=== PATIENT | female | born 2000 | race Caucasian/White ===

== ENCOUNTER 2020-03-07 16:12 | Emergency (ER) | payer SELFPAY ==
[2020-03-07 16:27] VITALS: BP 160/110; PULSE 104; RESP 18; TEMP 36.6; O2SAT 98; BMI 37.2
[2020-03-07 16:33] VITALS: BP 126/80; RESP 18; O2SAT 98
[2020-03-07 16:44] VITALS: RESP 18; O2SAT 97
[2020-03-07 16:50] LABS: Add Urine Microscopic? NO
[2020-03-07 16:58] LABS: Bilirubin Urine Neg (NEGATIVE); Blood Urine Neg (Negative); Glucose Urine UA Norm (Normal); Ketones Urine Negative (Negative); Leukocyte Esterase Urine Negative (Negative); Nitrate Urine Negative (Negative); Protein Urine Neg (Negative); Urine Appearance Clear (CLEAR); Urine Color Yellow (Yellow); Urobilinogen Urine Norm (Negative); pH Urine 5 (5-7)
[2020-03-07 17:00] LABS: Basophils % 0.2 %; Eosinophils # 0.1 10^3/uL (0.0-0.8); Eosinophils % 1.6 %; Hematocrit 40.9 % (37.0-47.0); Hemoglobin 13.2 g/dL (11.5-15.3); Lymphocytes # 1.8 10^3/uL (1.5-6.5); Lymphocytes % 22.5 %; Mean Corpuscular HGB Conc 32.3 g/dL (30.0-36.0); Mean Corpuscular Hemoglobin 27.8 pg (28.0-34.0); Mean Corpuscular Volume 86.1 fL (81-99); Monocytes # 0.4 10^3/uL (0.2-0.9); Monocytes % 5.2 %; Neutrophils # 5.6 10^3/uL (1.8-8.0); Neutrophils % 70.3 %; Nucleated Red Blood Cells % 0 %; Platelet Count 335 10^3/cmm (130-400); Red Blood Count 4.75 10^6/uL (4.1-5.3); Red Cell Distribution Width 13.5 % (12.1-15.1)
--- NOTE | 2020-03-07 17:02 | ED_ITS ---
HPI - Back Pain/Injury General: Chief Complaint: Back Pain/Injury Stated Complaint: back pain Time Seen by Provider: 03/07/20 16:27 History of Present Illness: HPI Narrative: 19-year-old female presents with complaint of mid to low back pain for the last 2 weeks is been crampy in nature to prevent her from working she denies any dysuria urgency or frequency no trauma that she can recall. She is not had any cough or shortness of breath she is tried various [id number] medications particularly Tylenol. She is also tried marijuana which she said did not help. She not previously had significant back problems no previous surgeries. She denies any urinary retention or fecal incontinence. MD elicited complaint: back pain Onset (ago): week(s) (2) Timing: constant Severity: severe Similar Symptoms Previously: No Quality: aching Location: lumbar spine and thoracic spine Radiation: none Relieving factors: supine Associated symptoms: Reports no associated symptoms; Deny abdominal pain, chills, dysuria, fatigue, fever(s), nausea, urinary urgency or vomiting Treatments prior to arrival: acetaminophen and prescription analgesics Review of Systems Const: Denies: fever(s), chills, body aches, change in appetite, fatigue or malaise ENMT: Denies: throat pain, ear or mastoid pain, nasal discharge or nasal congestion Card: Denies: chest pain, edema, dyspnea on exertion or orthopnea Resp: Denies: dyspnea, productive cough or non-productive cough GI: Denies: abdominal pain, nausea, vomiting, hematemesis, coffee ground emesis, diarrhea, constipation, bloating, hematochezia or melena : Denies: flank pain, difficulty voiding, dysuria, urinary frequency or urinary urgency Skin/Breast: Denies: rash or pruritus PFS ED PFSH: Medical History Asthma Social History Smoking and tobacco status: current every day smoker Female Reproductive History: Date of last menstrual period: 02/16/20 Physical Exam Const: COMMON NORMALS: no acute distress GENERAL APPEARANCE: cooperative and comfortable ORIENTATION/CONSCIOUSNESS: Yes awake, Yes oriented to person, Yes oriented to place and Yes oriented to time HENMT: COMMON NORMALS: normocephalic, atraumatic, hearing grossly normal bilaterally, external ears normal, EAC's normal, TM's normal bilaterally, Normal nasal mucous membranes and turbinates present, moist oral mucous membranes and oropharynx normal HEAD & SCALP: normocephalic and atraumatic NOSE: Normal nasal mucous membranes and turbinates present EXTERNAL EAR: Yes external ears normal EXTERNAL AUDITORY CANAL: EAC's normal TYMPANIC MEMBRANE: TM's normal bilaterally Eye: COMMON NORMALS: Equal, round and reactive pupils present, EOMs intact bilaterally, conjunctivae normal and no scleral icterus CONJUNCTIVA: Yes conjunctivae normal PUPIL: Yes Equal, round and reactive pupils present Neck/C-Spine: COMMON NORMALS: full ROM, no lymphadenopathy, supple and no JVD Lymph: LYMPHATIC: no lymphadenopathy noted and no lymphedema noted Resp: COMMON NORMALS: normal respiratory effort, No retractions, No use of accessory muscles and clear to auscultation bilaterally AUSCULTATION: clear to auscultation bilaterally Cardio: COMMON NORMALS: no JVD, regular rate, regular rhythm and No murmurs present (Cardio) RATE: regular rate RHYTHM: regular rhythm GI: COMMON NORMALS: Soft to palpation and No hepatosplenomegaly present AUSCULTATION: Yes normoactive bowel sounds PALPATION: Yes Soft to palpation, No Tenderness to palpation present (GI), No Guarding due to palpation present (GI) and Yes No hepatosplenomegaly present Extremity: COMMON NORMALS: normal to inspection, capillary refill normal, no clubbing, cyanosis or edema, no calf tenderness and no pedal edema Neuro: SENSORIUM/ORIENTATION: Yes oriented to person, Yes oriented to place and Yes oriented to time Skin: COMMON NORMALS: no rashes or lesions noted GENERAL SKIN EXAM: no rashes or lesions noted Course Vital Signs: Vital signs: Vital Signs Temperature 98 F 03/07/20 16:27 Pulse Rate 66 03/07/20 18:04 Respiratory Rate 17 03/07/20 18:04 Blood Pressure 104/63 03/07/20 18:04 Pulse Oximetry 99 03/07/20 18:04 MDM - Back Pain/Injury Lab Data: Labs: Lab Results 03/07/20 03/07/20 03/07/20 Range/Units 16:42 16:42 16:52 WBC 8.0 (4.5-13.0) 10^3/ uL RBC 4.75 (4.1-5.3) 10^6/u L Hgb 13.2 (11.5-15.3) g/dL Hct 40.9 (37.0-47.0) % MCV 86.1 (81-99) fL MCH 27.8 L (28.0-34.0) pg MCHC 32.3 (30.0-36.0) g/dL RDW 13.5 (12.1-15.1) % Plt Count 335 (130-400) 10^3/c mm MPV 10.0 (7.4-10.4) fL Neut % (Auto) 70.3 % Lymph % (Auto) 22.5 % [place] % (Auto) 5.2 % Eos % (Auto) 1.6 % Baso % (Auto) 0.2 % Neut # (Auto) 5.6 (1.8-8.0) 10^3/u L Lymph # (Auto) 1.8 (1.5-6.5) 10^3/u L [place] # (Auto) 0.4 (0.2-0.9) 10^3/u L Eos # (Auto) 0.1 (0.0-0.8) 10^3/u L Baso # (Auto) 0.0 (0.0-0.1) 10^3/u L Nucleated RBC % (a uto) 0 % Nucleated RBCs # 0.0 /100WBC Sodium (136-145) mmol/L Potassium (3.5-5.1) mmol/L Chloride (98-107) mmol/L Carbon Dioxide (22-29) mmol/L Anion Gap (5-19) BUN (6-20) mg/dL Creatinine (0.5-0.9) mg/dL GFR Calculation (90-130) mL/min Glucose (65-115) mg/dL Calculated Osmolal ity (285-295) mOsm/k g Calcium (8.5-10.5) mg/dL Total Bilirubin (0.15-1.2) mg/dL AST (0-32) U/L ALT (0-33) U/L Alkaline Phosphata se (35-105) IU/L Total Protein (6.6-8.7) g/dL Albumin (3.5-5.2) g/dL Globulin (1.3-4.6) g/dL HCG, Qual Negative (Negative) Urine Color Yellow (Yellow) Urine Appearance Clear (CLEAR) Urine pH 5 (5-7) Ur Specific Gravit y 1.020 (1.005-1.030) Urine Protein Neg (Negative) Urine Glucose (UA) Norm (Normal) Urine Ketones Negative (Negative) Urine Blood Neg (Negative) Urine Nitrate Negative (Negative) Urine Bilirubin Neg (NEGATIVE) Urine Urobilinogen Norm (Negative) mg/dL Ur Leukocyte Emmy ase Negative (Negative) 03/07/20 Range/Units 16:52 WBC (4.5-13.0) 10^3/ uL RBC (4.1-5.3) 10^6/u L Hgb (11.5-15.3) g/dL Hct (37.0-47.0) % MCV (81-99) fL MCH (28.0-34.0) pg MCHC (30.0-36.0) g/dL RDW (12.1-15.1) % Plt Count (130-400) 10^3/c mm MPV (7.4-10.4) fL Neut % (Auto) % Lymph % (Auto) % [place] % (Auto) % Eos % (Auto) % Baso % (Auto) % Neut # (Auto) (1.8-8.0) 10^3/u L Lymph # (Auto) (1.5-6.5) 10^3/u L [place] # (Auto) (0.2-0.9) 10^3/u L Eos # (Auto) (0.0-0.8) 10^3/u L Baso # (Auto) (0.0-0.1) 10^3/u L Nucleated RBC % (a uto) % Nucleated RBCs # /100WBC Sodium 137 (136-145) mmol/L Potassium 3.9 (3.5-5.1) mmol/L Chloride 100 (98-107) mmol/L Carbon Dioxide 23 (22-29) mmol/L Anion Gap 17.9 (5-19) BUN 8 (6-20) mg/dL Creatinine 0.7 (0.5-0.9) mg/dL GFR Calculation 106.7 (90-130) mL/min Glucose 97 (65-115) mg/dL Calculated Osmolal ity 280 L (285-295) mOsm/k g Calcium 9.6 (8.5-10.5) mg/dL Total Bilirubin 0.4 (0.15-1.2) mg/dL AST 19 (0-32) U/L ALT 19 (0-33) U/L Alkaline Phosphata se 101 (35-105) IU/L Total Protein 7.2 (6.6-8.7) g/dL Albumin 4.6 (3.5-5.2) g/dL Globulin 2.6 (1.3-4.6) g/dL HCG, Qual (Negative) Urine Color (Yellow) Urine Appearance (CLEAR) Urine pH (5-7) Ur Specific Gravit y (1.005-1.030) Urine Protein (Negative) Urine Glucose (UA) (Normal) Urine Ketones (Negative) Urine Blood (Negative) Urine Nitrate (Negative) Urine Bilirubin (NEGATIVE) Urine Urobilinogen (Negative) mg/dL Ur Leukocyte Emmy ase (Negative) Discharge Plan Discharge Patient Disposition: Home, Self-Care Clinical Impression: Strain of lumbar region Condition: Stable Prescriptions: New hydrocodone-acetaminophen 5-325 mg tablet 1 tab PO Q6H PRN (Reason: pain) Qty: 10 RF: 0 diclofenac sodium 75 mg tablet,delayed release (DR/EC) 75 mg PO Q12H PRN (Reason: pain) Qty: 20 RF: 0 cyclobenzaprine 10 mg tablet 10 mg PO TID PRN (Reason: muscle spasm) Qty: 14 RF: 0 No Action vitamin E 200 unit Capsule 200 unit PO DAILY RF: 0 vitamin A 10,000 unit Capsule 10,000 unit PO DAILY RF: 0 Vitamin C 250 mg Tablet 250 mg PO DAILY RF: 0 Vitamin D3 50 mcg (2,000 unit) Tablet 50 mcg PO DAILY RF: 0 Hair,Skin and Nails Tablet 1 tab PO DAILY RF: 0 Discharge Diet: Usual diet Discharge Activity: Increase activity as tolerated Activity Restrictions/Additional Instructions: Follow up with your prim[facility] care doctor as needed. Stand Alone Forms: Work/School Release Discharge Date/Time: 03/07/20 18:05 Coding Level of Care Code ED Wage Hand for [facility] Fwd Exam Comprehensive
[2020-03-07 17:13] LABS: Alanine Aminotransferase 19 U/L (0-33); Albumin Level 4.6 g/dL (3.5-5.2); Alkaline Phosphatase 101 IU/L (35-105); Anion Gap 17.9 (5-19); Aspartate Amino Transferase 19 U/L (0-32); Blood Urea Nitrogen 8 mg/dL (6-20); Calcium 9.6 mg/dL (8.5-10.5); Carbon Dioxide 23 mmol/L (22-29); Chloride 100 mmol/L (98-107); Globulin 2.6 g/dL (1.3-4.6); Glomerular Filtration Rate 106.7 mL/min (90-130); Glucose 97 mg/dL (65-115); Osmolality Calculated 280 mOsm/kg (285-295); Potassium 3.9 mmol/L (3.5-5.1); Sodium 137 mmol/L (136-145); Total Bilirubin 0.4 mg/dL (0.15-1.2); Total Protein 7.2 g/dL (6.6-8.7)
[2020-03-07] MEDS: orphenadrine 30 mg/mL Inj 2 mL 60 MG IM (17:33)
[2020-03-07] MEDS: orphenadrine 30 mg/mL Inj 2 mL 60 MG IVP (17:33)
[2020-03-07] MEDS: ketorolac 30 mg/mL INJ IM (17:34)
[2020-03-07 17:52] LABS: HCG Qualitative Urine. Negative (Negative)
[2020-03-07 18:04] VITALS: BP 104/63; PULSE 66; RESP 17; O2SAT 99
== END 2020-03-07 18:05 | disposition home or self-care (01) ==
PROVIDERS: Emergency Provider Family Medicine
DX: S39.012A Strain of muscle, fascia and tendon of lower back, initial encounter (principal); X58.XXXA Exposure to other specified factors, initial encounter; J45.909 Unspecified asthma, uncomplicated; F17.210 Nicotine dependence, cigarettes, uncomplicated
CPT/HCPCS: 12345; 36415; 80053; 81003; 81025; 85025; 96372; 96374; 99282; 99283; J1885; J2360

== ENCOUNTER → 2020-07-27 17:26 | Outpatient (BNVA) | payer OTHER, SELFPAY | PROVIDERS: Visit Provider Nurse Practitioner | DX: Z11.59 Encounter for screening for other viral diseases (principal) | CPT/HCPCS: 87635 ==

== ENCOUNTER 2021-05-17 20:24 | Emergency (ER) | payer MEDICAID, SELFPAY ==
[2021-05-17 20:36] VITALS: BMI 36.4
[2021-05-18 01:02] VITALS: BP 129/81; PULSE 86; RESP 18; TEMP 37.1; O2SAT 98
--- NOTE | 2021-05-18 02:02 | ED_ITS ---
HPI - General: Chief complaint: Abdominal Pain Stated complaint: POSS MISCARRIAGE Time Seen by Provider: 05/18/21 01:53 History of Present Illness: HPI Narrative: Patient is a 20-year-old female that is 15 weeks and comes to the ED with abdominal cramping. This is patient's first . Patient denies any vaginal bleeding, but does endorse some clear/white vaginal discharge. Denies any UTI symptoms or vaginal pain. She says the abdominal cramping starts in the lower pelvis and radiates around both flanks and into her lower back. She has been taking Tylenol to help with pain. She has not taken any Tylenol today. Date of Last Menstrual Period: 02/01/21 Associated symptoms: Reports abdominal pain (Abdominal cramping) and vaginal discharge (Whitish clear discharge); Deny dysuria, headache(s), nausea or vomiting Review of Systems Const: Denies: fever(s), chills or fatigue Eyes: Denies: change in vision or eye discomfort ENMT: Denies: throat pain, odynophagia, nasal discharge or nasal congestion Card: Denies: chest pain, palpitations, edema, swelling of feet/ankles, dyspnea on exertion or orthopnea Resp: Denies: dyspnea, productive cough or non-productive cough GI: Reports: abdominal pain (Abdominal cramping) and GI cramping; Denies: nausea, vomiting, diarrhea, constipation or hematochezia : Reports: vaginal discharge (Whitish clear discharge); Denies: flank pain, dysuria or hematuria Musc: Denies: neck pain, back pain or extremity swelling Skin/Breast: Denies: rash or new lesions Neuro: Denies: headache(s), numbness in extremities or weakness in extremities PFSH ED PFSH: Medical History Anxiety Asthma Depression PTSD (post-traumatic stress disorder) Social History Smoking and tobacco status: current every day smoker cigarettes Alcohol intake: never Female Reproductive History: Date of last menstrual period: 02/01/21 Physical Exam Const: COMMON NORMALS: no acute distress, patient oriented x3, healthy appearing and alert GENERAL APPEARANCE: cooperative and comfortable NUTRITIONAL APPEARANCE: overweight HENMT: COMMON NORMALS: normocephalic HEAD & SCALP: normocephalic MOUTH: Normal oral and palatal mucosa present THROAT: posterior oropharynx normal and uvula midline Neck/C-Spine: COMMON NORMALS: supple GENERAL: Yes normal visual inspection Resp: COMMON NORMALS: normal respiratory effort, No retractions, No use of accessory muscles and clear to auscultation bilaterally AUSCULTATION: clear to auscultation bilaterally Cardio: COMMON NORMALS: regular rate, regular rhythm, S1 normal heart sound present, S2 normal heart sound present, No gallops present (Cardio), No clicks present (Cardio), No murmurs present (Cardio) and Peripheral pulses 2+ throughout RATE: regular rate RHYTHM: regular rhythm HEART SOUNDS: S1 normal heart sound present and S2 normal heart sound present PERIPHERAL PULSES: Peripheral pulses 2+ throughout GI: COMMON NORMALS: Normal to inspection, nondistended, normoactive bowel sounds present, Soft to palpation and no masses PALPATION: Yes Soft to palpation and Yes Tenderness to palpation present (GI) Details: other (Lower mid pelvis mild tenderness) : COMMON NORMALS: Yes no CVA tenderness BLADDER/KIDNEY EXAM: Yes no CVA tenderness Back/Pelvis: COMMON NORMALS: no CVA tenderness Extremity: COMMON NORMALS: normal to inspection Neuro: COMMON NORMALS: patient oriented x3 and moves all extremities SENSORIUM/ORIENTATION: Yes alert Skin: GENERAL SKIN EXAM: dry skin Course ED course: Dr. Arora went in and performed a bedside ultrasound. Baby was doing well and heart rate was normal. Vital Signs: Vital signs: Vital Signs Temperature 98.7 F 05/18/21 01:02 Pulse Rate 79 05/18/21 03:47 Respiratory Rate 17 05/18/21 03:47 Blood Pressure 120/95 05/18/21 03:47 Pulse Oximetry 98 05/18/21 03:47 MDM - OB/Uterine Contractions MDM Narrative: Medical decision making narrative: Patient is a 20-year-old female that is 15 weeks she comes to the ED with lower abdominal cramping pain along with some vaginal discharge. Vaginal discharge is a whitish clear color. Denies any vaginal bleeding. Patient appears healthy and in no acute distress or pain. Exam showed some lower central pelvic tenderness but rest of exam was benign. Dr. Arora performed a bedside ultrasound and baby was doing well and heart rate was normal. Wet prep was negative for clue cells, trichomonas and marissa. UA showed signs of possible UTI. CBC was unremar kable. Patient was given some Tylenol while here in the ED to help with pain. Patient diagnosed with a UTI and discharged home with Macrobid and some Reglan for nausea. She is told to follow-up with her OB at her next scheduled appointment. Return ED precautions given. Patient understood agree with plan. Lab Data: Attestation: I reviewed the patient's lab results. Labs: Lab Results 05/18/21 05/18/21 Range/Units 02:15 02:34 WBC 9.3 (4.0-10.0) 10^3/ uL RBC 4.07 L (4.1-5.3) 10^6/u L Hgb 11.5 (11.5-15.3) g/dL Hct 34.4 L (37.0-47.0) % MCV 84.5 (81-99) fL MCH 28.3 (28.0-34.0) pg MCHC 33.4 (30.0-36.0) g/dL RDW 13.4 (12.1-15.1) % Plt Count 264 (130-400) 10^3/c mm MPV 10.3 (7.4-10.4) fL Neut % (Auto) 74.4 % Lymph % (Auto) 19.1 % [place] % (Auto) 5.1 % Eos % (Auto) 1.1 % Baso % (Auto) 0.1 % Neut # (Auto) 6.91 (1.8-7.7) 10^3/u L Lymph # (Auto) 1.8 (0.8-4.8) 10^3/u L [place] # (Auto) 0.5 (0.2-0.9) 10^3/u L Eos # (Auto) 0.1 (0.0-0.8) 10^3/u L Baso # (Auto) 0.0 (0.0-0.1) 10^3/u L Nucleated RBC % (a uto) 0 % Nucleated RBCs # 0.0 /100WBC Urine Color Yellow (Yellow) Urine Appearance Hazy A (CLEAR) Urine pH 5 (5-7) Ur Specific Gravit y 1.020 (1.005-1.030) Urine Protein Neg (Negative) Urine Glucose (UA) Norm (Normal) Urine Ketones 1+ H (Negative) Urine Blood 2+ H (Negative) Urine Nitrate Negative (Negative) Urine Bilirubin Neg (Negative) Urine Urobilinogen Norm (Negative) mg/dL Ur Leukocyte Emmy ase Negative (Negative) Urine RBC 0-4 H (0-2) /hpf Urine WBC 15-25 H (0-5) /hpf Ur Squamous Epith Cells 25-40 H (0-5) /hpf Amorphous Sediment Not Reportable Urine Bacteria 4+ H (NONE) /hpf Discharge Plan Discharge Patient Disposition: Home Clinical Impression: UTI (urinary tract infection) Qualifiers: Urinary tract infection type: acute cystitis Hematuria presence: with hematuria Qualified Code(s): N30.01 - Acute cystitis with hematuria Condition: Stable Prescriptions: New Reglan 10 mg tablet 10 mg PO Q6H PRN (Reason: nausea and vomiting) Qty: 12 RF: 0 Macrobid 100 mg capsule 100 mg PO BID 7 Days Qty: 14 RF: 0 No Action norgestimate-ethinyl estradiol [Sprintec (28)] 0.25-35 mg-mcg tablet 1 tab PO DAILY Qty: 28 RF: 12 vitamin E 200 unit Capsule 200 unit PO DAILY RF: 0 vitamin A 10,000 unit Capsule 10,000 unit PO DAILY RF: 0 Vitamin C 250 mg Tablet 250 mg PO DAILY RF: 0 Vitamin D3 50 mcg (2,000 unit) Tablet 50 mcg PO DAILY RF: 0 Hair,Skin and Nails Tablet 1 tab PO DAILY RF: 0 hydrocodone-acetaminophen 5-325 mg tablet 1 tab PO Q6H PRN (Reason: pain) Qty: 10 RF: 0 diclofenac sodium 75 mg tablet,delayed release (DR/EC) 75 mg PO Q12H PRN (Reason: pain) Qty: 20 RF: 0 cyclobenzaprine 10 mg tablet 10 mg PO TID PRN (Reason: muscle spasm) Qty: 14 RF: 0 Discharge Orders: Discharge ED (Routine); Ordered 05/18/21 Ordered By: David Vivas Referrals: Uri Santos MD [Primary Care Provider] - Discharge Diet: Regular Discharge Activity: Increase activity as tolerated Patient Instructions: Urinary Tract Infection in Women (ED) Activity Restrictions/Additional Instructions: Follow-up with your OB doctor at next scheduled appointment. Take medications as prescribed. Drink plenty of fluids and stay hydrated. Return to the ER or your medical provider if condition worsens. Please read and understand discharge instructions. Thank you for choosing [facility] for your healthcare needs today. Please realize this is an emergency room and that we are providing you with a medical screening exam and this may not be complete and all inclusive of all the testing and or work up that you may need to determine your ailment or severity of your illness. It is very important that you follow up as instructed or that you return to the Emergency Department should you have concerns or if your condition changes or worsens in any way. Coding Level of Care Code ED [employer] De[employer] Technician for [employer] Fwd Exam Comprehensive
[2021-05-18 02:36] VITALS: BP 152/90; PULSE 70; RESP 14; O2SAT 99
[2021-05-18 02:42] LABS: Basophils % 0.1 %; Eosinophils # 0.1 10^3/uL (0.0-0.8); Eosinophils % 1.1 %; Hematocrit 34.4 % (37.0-47.0); Hemoglobin 11.5 g/dL (11.5-15.3); Lymphocytes # 1.8 10^3/uL (0.8-4.8); Lymphocytes % 19.1 %; Mean Corpuscular HGB Conc 33.4 g/dL (30.0-36.0); Mean Corpuscular Hemoglobin 28.3 pg (28.0-34.0); Mean Corpuscular Volume 84.5 fL (81-99); Mean Platelet Volume 10.3 fL (7.4-10.4); Monocytes # 0.5 10^3/uL (0.2-0.9); Monocytes % 5.1 %; Neutrophils # 6.91 10^3/uL (1.8-7.7); Neutrophils % 74.4 %; Nucleated Red Blood Cells % 0 %; Platelet Count 264 10^3/cmm (130-400); Red Blood Count 4.07 10^6/uL (4.1-5.3); Red Cell Distribution Width 13.4 % (12.1-15.1); White Blood Count 9.3 10^3/uL (4.0-10.0)
[2021-05-18 03:00] VITALS: BP 131/83; PULSE 71; RESP 19; O2SAT 100
[2021-05-18 03:01] LABS: Add Urine Culture? No; Bacteria Urine 4+ /hpf; Bilirubin Urine Neg (Negative); Blood Urine 2+ (Negative); Glucose Urine UA Norm (Normal); Ketones Urine 1+ (Negative); Leukocyte Esterase Urine Negative (Negative); Nitrate Urine Negative (Negative); Protein Urine Neg (Negative); RBC Urine 0-4 /hpf (0-2); Squamous Epithelial Cell Urine 25-40 /hpf (0-5); Urine Appearance Hazy (CLEAR); Urine Color Yellow (Yellow); Urobilinogen Urine Norm (Negative); WBC Urine 15-25 /hpf (0-5); pH Urine 5 (5-7)
[2021-05-18] MEDS: nitrofurantoin SR (BID) 100 mg Capsule PO (03:46)
[2021-05-18 03:47] VITALS: BP 120/95; PULSE 79; RESP 17; O2SAT 98
== END 2021-05-18 04:05 | disposition home or self-care (01) ==
PROVIDERS: Emergency Medicine; Emergency Provider Physician Assistant; PCP Family Medicine
DX: O23.42 Unspecified infection of urinary tract in pregnancy, second trimester (principal); O99.512 Diseases of the respiratory system complicating pregnancy, second trimester; J45.909 Unspecified asthma, uncomplicated; Z3A.15 15 weeks gestation of pregnancy
CPT/HCPCS: 81001; 85025; 86850; 86900; 87210; 99283

== ENCOUNTER → 2021-08-23 10:31 | Outpatient (BNVA) | payer MEDICAID, SELFPAY | PROVIDERS: PCP Family Medicine; Visit Provider Obstetrics & Gynecology | DX: O99.019 Anemia complicating pregnancy, unspecified trimester (principal); F32.4 Major depressive disorder, single episode, in partial remission; F41.9 Anxiety disorder, unspecified; Z72.0 Tobacco use; J45.909 Unspecified asthma, uncomplicated; F43.10 Post-traumatic stress disorder, unspecified; F12.90 Cannabis use, unspecified, uncomplicated; O35.8XX0 Maternal care for other (suspected) fetal abnormality and damage, not applicable or unspecified | CPT/HCPCS: 81000 ==

== ENCOUNTER → 2021-09-06 13:25 | Outpatient (BNVA) | payer MEDICAID, SELFPAY | PROVIDERS: PCP Family Medicine; Visit Provider Obstetrics & Gynecology | DX: O09.899 Supervision of other high risk pregnancies, unspecified trimester (principal) | CPT/HCPCS: 81000 ==

== ENCOUNTER 2021-09-27 12:28 | Outpatient (CLI) | payer MEDICAID, SELFPAY ==
--- NOTE | 2021-09-27 12:46 | ECG_ITS ---
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 Measurements Intervals [place] Rate: 90 P: 50 LA: 132 QRS: 68 QRSD: 77 T: 37 QT: 351 QTc: 431 Interpretive Statements SINUS RHYTHM POSSIBLE LEFT ATRIAL ENLARGEMENT [-0.1mV P WAVE IN V1/V2] NONSPECIFIC T-WAVE ABNORMALITY No previous ECG available for comparison Electronically Signed On 09-29-2021 7:49:19 GARMENT LOOPER by Saad Badillo M.D. [id number]
[2021-09-27 14:04] LABS: Basophils % 0.1 %; Eosinophils # 0.1 10^3/uL (0.0-0.8); Eosinophils % 0.8 %; Hematocrit 31.3 % (37.0-47.0); Hemoglobin 10.2 g/dL (11.5-15.3); Lymphocytes # 1.6 10^3/uL (0.8-4.8); Lymphocytes % 17.2 %; Mean Corpuscular HGB Conc 32.6 g/dL (30.0-36.0); Mean Corpuscular Hemoglobin 27.4 pg (28.0-34.0); Mean Corpuscular Volume 84.1 fl (81-99); Mean Platelet Volume 10.3 fL (7.4-10.4); Monocytes # 0.4 10^3/uL (0.2-0.9); Monocytes % 4.2 %; Neutrophils # 7.11 10^3/uL (1.8-7.7); Neutrophils % 76.9 %; Nucleated Red Blood Cells % 0 %; Platelet Count 320 10^3/cmm (130-400); Red Blood Count 3.72 10^6/uL (4.1-5.3); White Blood Count 9.2 10^3/uL (4.0-10.0)
[2021-09-30 01:52] LABS: PROTEIN S, ACTIVITY 59 % normal (60-140)
[2021-09-30 21:02] LABS: Antithrombin III Activity 124 % normal (80-135)
[2021-10-03 02:47] LABS: PROTEIN C, ACTIVITY 134 % (70-180)
[2021-10-03 16:41] LABS: Factor 5 Leiden Mutation NEGATIVE
[2021-10-04 22:53] LABS: PROTHROMBIN (FACTOR II) 20210G NEGATIVE
== END 2021-09-27 12:29 | disposition home or self-care (01) ==
LOC: RAD 12:31 → RT 12:34
PROVIDERS: PCP Family Medicine; Visit Provider Obstetrics & Gynecology
DX: Z86.718 Personal history of other venous thrombosis and embolism (principal); I49.9 Cardiac arrhythmia, unspecified; R94.31 Abnormal electrocardiogram [ECG] [EKG]
CPT/HCPCS: 81000; 81241; 84182; 85025; 85210; 85300; 85303; 85306; 86235; 93005

== ENCOUNTER → 2021-10-11 14:09 | Outpatient (BNVA) | payer MEDICAID, SELFPAY | PROVIDERS: PCP Family Medicine; Visit Provider Obstetrics & Gynecology | DX: O09.899 Supervision of other high risk pregnancies, unspecified trimester (principal); Z86.718 Personal history of other venous thrombosis and embolism | CPT/HCPCS: 81000; 85306; 87081 ==

== ENCOUNTER → 2021-10-18 13:19 | Outpatient (BNVA) | payer MEDICAID, SELFPAY | PROVIDERS: PCP Family Medicine; Visit Provider Obstetrics & Gynecology | DX: O09.899 Supervision of other high risk pregnancies, unspecified trimester (principal) | CPT/HCPCS: 81000 ==

== ENCOUNTER → 2021-10-25 10:20 | Outpatient (BNVA) | payer MEDICAID, SELFPAY | PROVIDERS: PCP Family Medicine; Visit Provider Obstetrics & Gynecology | DX: O09.899 Supervision of other high risk pregnancies, unspecified trimester (principal) | CPT/HCPCS: 81000 ==

== ENCOUNTER → 2021-11-01 14:37 | Outpatient (BNVA) | payer MEDICAID, SELFPAY | PROVIDERS: PCP Family Medicine; Visit Provider Obstetrics & Gynecology | DX: O09.899 Supervision of other high risk pregnancies, unspecified trimester (principal) | CPT/HCPCS: 81000 ==

== ENCOUNTER → 2022-06-03 13:44 | Outpatient (BNVA) | payer MEDICAID, SELFPAY | PROVIDERS: PCP Family Medicine Adult Medicine; Visit Provider Family Medicine | DX: J20.9 Acute bronchitis, unspecified (principal); J02.9 Acute pharyngitis, unspecified | CPT/HCPCS: 87071; 87880 ==

== ENCOUNTER 2023-02-17 06:04 | Emergency (ER) | payer MEDICAID, SELFPAY ==
[2023-02-17 06:13] VITALS: BP 146/91; PULSE 89; RESP 18; TEMP 36.6; O2SAT 99; BMI 38.0
--- NOTE | 2023-02-17 06:17 | W.ED.FALL ---
HPI - Fall General: Chief Complaint: Fall Stated Complaint: fall Time Seen by Provider: 02/17/23 06:17 Source: patient Mode of arrival: ambulatory History of Present Illness: 22-year-old female who presents to the emergency room after slipping down about 5 stairs. She was ambulatory after that she not strike her head did not lose consciousness. She is complaining of some low back pain she had some chronic back pain issues as well recently had a localized injection for that. She has no worsening radicular symptoms no fecal incontinence no urinary retention. MD complaint: fall Onset (ago): minute(s) Fall from: standing and down stairs (#) (5) Place fall occurred: home Loss of consciousness: None Prolonged down time: no Context: tripped/slipped Location of injury: back Associated symptoms-after fall: Denies abdominal pain or chest pain Review of Systems Const: Denies: fever(s), chills, body aches, change in appetite, fatigue or malaise ENMT: Denies: nasal discharge Card: Denies: chest pain or dyspnea on exertion Resp: Denies: dyspnea, productive cough or non-productive cough GI: Denies: abdominal pain, nausea or vomiting : Denies: flank pain, difficulty voiding, dysuria, urinary frequency or urinary urgency Musc: Reports: back pain Skin/Breast: Denies: rash or pruritus PFSH ED PFSH: Medical History Anxiety and depression Asthma History of anorexia nervosa History of hallucinations as a child, does not have them much anymore Lordosis PTSD (post-traumatic stress disorder) Scoliosis Surgical History No pertinent past surgical history Status post section Family History Grandfather Thyroid disease Maternal CAD (coronary artery disease) Maternal Cancer Maternal--skin cancer Clotting disorder Maternal Hyperlipidemia Maternal Stroke Maternal Mother Seizures Hypertension Diabetes Cancer skin cancer Clotting disorder Grandfather Hypertension Diabetes Maternal Grandmother Hypertension Maternal Family/Other Stroke Maternal aunts Denies family history of Chronic kidney disease (CKD) Bleeding disorder Social History Smoking and tobacco status: current every day smoker (1-2 ppd) cigarettes Alcohol intake: never Substance/Drug Use: current Other substance/drug use details: smokes 6-7 times daily Physical Exam Const: GENERAL APPEARANCE: cooperative and comfortable ORIENTATION/CONSCIOUSNESS: Yes awake, Yes oriented to person, Yes oriented to place and Yes oriented to time HENMT: COMMON NORMALS: normocephalic, atraumatic and hearing grossly normal bilaterally HEAD & SCALP: normocephalic and atraumatic Resp: COMMON NORMALS: normal respiratory effort, No retractions, No use of accessory muscles and clear to auscultation bilaterally AUSCULTATION: clear to auscultation bilaterally Cardio: COMMON NORMALS: regular rate, regular rhythm and No murmurs present (Cardio) RATE: regular rate RHYTHM: regular rhythm GI: COMMON NORMALS: Soft to palpation and No hepatosplenomegaly present AUSCULTATION: Yes normoactive bowel sounds PALPATION: Yes Soft to palpation, No Tenderness to palpation present (GI), No Guarding due to palpation present (GI) and Yes No hepatosplenomegaly present Extremity: COMMON NORMALS: normal to inspection, capillary refill normal, no clubbing, cyanosis or edema, no calf tenderness and no pedal edema Neuro: SENSORIUM/ORIENTATION: Yes oriented to person, Yes oriented to place and Yes oriented to time Skin: COMMON NORMALS: no rashes or lesions noted GENERAL SKIN EXAM: no rashes or lesions noted Course Vital Signs: Vital signs: Vital Signs Temperature 97.9 F 02/17/23 06:13 Pulse Rate 89 02/17/23 06:13 Respiratory Rate 18 02/17/23 06:13 Blood Pressure 146/91 02/17/23 06:13 Pulse Oximetry 98 02/17/23 06:41 Oxygen Delivery Me thod Room Air 02/17/23 06:41 MDM - Fall Medical Decision Making Imaging reviewed by myself no acute fractures noted. Patient likely has soft tissue injury from the fall. There is no active bruising or laceration. She is able to ambulate although with some difficulty medications right in the ER did relieve symptoms we will discharge patient home with prednisone taper changed to tizanidine for muscle relaxer continue use of tramadol as needed follow-up with your primary care doctor return if is worsening problems Medical Records I reviewed the patient's medical records. Lab Data I reviewed the patient's lab results. Radiology Impressions Lumbar Spine X-Ray 02/17/23 06:24 IMPRESSION: Mild alteration of lumbar curvatures as above. No other significant abnormality. Sacrum and Coccyx X-Ray 02/17/23 06:24 IMPRESSION: No significant abnormality. Discharge Plan Discharge Patient Disposition: Home Clinical Impression: Acute lumbar back pain, Fall Condition: Stable Prescriptions: New tizanidine 4 mg tablet 4 mg PO Q6H PRN (Reason: muscle spasticity) Qty: 20 0RF Rx Instructions: do not exceed 3 doses per 24 hrs diclofenac sodium 75 mg tablet,delayed release (DR/EC) 75 mg PO Q12H PRN (Reason: pain) Qty: 20 0RF Held methocarbamol 750 mg tablet 750 mg PO Q8H Qty: 30 0RF Hold Instructions: Resume on 02/27/23. Discontinued prednisone 20 mg tablet 60 mg PO DAILY 5 Days Qty: 15 0RF No Action tramadol 50 mg tablet 50 mg PO Q6H PRN (Reason: pain) Qty: 30 0RF Discharge Orders: Discharge ED (Routine); Ordered 02/17/23 Ordered By: Khoi Bridges Referrals: Moreno Perry MD [Primary Care Provider] - Discharge Diet: Usual diet Discharge Activity: Resume usual activity Patient Instructions: Opioid Safety, Pain Management Coding Level of Care Code ED Apprenticeship Training Representative for Tejas Marquez
--- NOTE | 2023-02-17 06:24 | XR_ITS ---
WS: [id number] XR lumbar spine 2-3V* [id number] REASON FOR EXAM: pain FINDINGS: Mild rotatory scoliosis convex left. Mild straightening of the normal lordosis. No focal vertebral body abnormality. Intervertebral disc spaces are intact and well preserved. No spondylolysis or spondylolisthesis. XR/XR lumbar spine 2-3V* [id number] IMPRESSION: Mild alteration of lumbar curvatures as above. No other significant abnormality .
--- NOTE | 2023-02-17 06:24 | XR_ITS ---
WS: [id number] XR sacrum coccyx min 2V [id number] REASON FOR EXAM: trauma FINDINGS: Sacrum and coccyx are intact. No fracture or dislocation. No soft tissue abnormality. XR/XR sacrum coccyx min 2V [id number] IMPRESSION: No significant abnormality.
[2023-02-17] MEDS: ketorolac 30 mg/mL INJ IVP (06:37)
[2023-02-17] MEDS: dexamethasone 10 mg/mL INJ IVP (06:37)
[2023-02-17] MEDS: orphenadrine 30 mg/mL Inj 2 mL 60 MG IVP (06:37)
[2023-02-17 06:41] VITALS: O2SAT 98
[2023-02-17] MEDS: HYDROcodone-acetaminophen 10-325 mg Tablet 1 TAB PO (07:13)
== END 2023-02-17 07:50 | disposition home or self-care (01) ==
PROVIDERS: Emergency Provider Family Medicine; PCP Family Medicine Adult Medicine
DX: M54.50 Low back pain, unspecified (principal); F17.210 Nicotine dependence, cigarettes, uncomplicated; W10.8XXA Fall (on) (from) other stairs and steps, initial encounter
CPT/HCPCS: 72100; 72220; 96374; 96375; 99284; J1100; J1885; J2360

== ENCOUNTER 2023-05-10 07:02 | Emergency (ER) | payer MEDICAID, SELFPAY ==
[2023-05-10 07:12] VITALS: BP 112/76; PULSE 81; RESP 16; TEMP 36.8; O2SAT 100; BMI 37.5
--- NOTE | 2023-05-10 07:15 | ECG_ITS ---
[facility] Test Date: 2023-05-10 Pat Name: Marielena Lucas Department: Room: Gender: Female Observation Nurse: : 2000 Requested By: Quentin Moore Order Number: [id number] Briggs MD: Wanda Rodriguez M.D. Measurements Intervals [place] Rate: 68 P: 50 MI: 145 QRS: 69 QRSD: 80 T: 54 QT: 376 QTc: 402 Interpretive Statements SINUS RHYTHM WITH SINUS ARRHYTHMIA Compared to ECG 09/27/2021 12:50:46 T-wave abnormality no longer present Electronically Signed On 05-10-2023 11:41:28 CDT by Wanda Rodriguez M.D. [id number]
--- NOTE | 2023-05-10 07:18 | W.ED.CHESTPA ---
HPI - Chest Pain General: Chief Complaint: Chest Pain Stated Complaint: Lower back pain, pressure in lower abd Time Seen by Provider: 05/10/23 07:04 History of Present Illness: Ms. Lucas is a 22-year-old lady with history of asthma and tobaccoism presented the emergency department for evaluation of chest discomfort. She notes onset of symptoms without known cause approximately 1 month ago. Intermittent in nature associated with more short of breath last night. At times she feels like she is coughing more. There are times where it radiates to abdomen and she also endorses lower abdominal pain. Denies changes in bowel movements or urination. She last had her menstrual period about 2 weeks ago. Mostly squeezing pressure. No other specific changes in health, exacerbating, or alleviating factors identified. Chronic low back pain is unchanged. Onset (ago): week(s) Pain location: right chest Pain radiation: abdomen Quality: tightness and sharp Relieving factors: nothing Exacerbating factors: nothing Associated symptoms: Reports dyspnea and nausea; Deny fever(s), syncope or vomiting Review of Systems General: Reports: 10 or more systems reviewed and unremarkable except in HPI and below Const: Denies: fever(s) Card: Denies: syncope Resp: Reports: dyspnea GI: Reports: nausea; Denies: vomiting PFSH ED PFSH: Medical History Anxiety and depression Asthma History of anorexia nervosa History of hallucinations as a child, does not have them much anymore Lordosis PTSD (post-traumatic stress disorder) Scoliosis Surgical History No pertinent past surgical history Status post section Family History Grandfather Thyroid disease Maternal CAD (coronary artery disease) Maternal Cancer Maternal--skin cancer Clotting disorder Maternal Hyperlipidemia Maternal Stroke Maternal Mother Seizures Hypertension Diabetes Cancer skin cancer Clotting disorder Grandfather Hypertension Diabetes Maternal Grandmother Hypertension Maternal Family/Other Stroke Maternal aunts Denies family history of Chronic kidney disease (CKD) Bleeding disorder Social History Smoking and tobacco status: current every day smoker (1-2 ppd) cigarettes Alcohol intake: never Substance/Drug Use: current Other substance/drug use details: smokes 6-7 times daily Physical Exam Const: COMMON NORMALS: alert GENERAL APPEARANCE: cooperative and well developed HENMT: COMMON NORMALS: normocephalic and atraumatic HEAD & SCALP: normocephalic and atraumatic Eye: COMMON NORMALS: conjunctivae normal CONJUNCTIVA: Yes conjunctivae normal SCLERA: sclerae normal Neck/C-Spine: COMMON NORMALS: supple GENERAL: Yes trachea midline Resp: COMMON NORMALS: normal respiratory effort and clear to auscultation bilaterally EFFORT & INSPECTION: Yes able to speak in complete sentences AUSCULTATION: clear to auscultation bilaterally Cardio: COMMON NORMALS: regular rate and regular rhythm RATE: regular rate RHYTHM: regular rhythm GI: COMMON NORMALS: Soft to palpation PALPATION: Yes Soft to palpation, No Guarding due to palpation present (GI) and No Rigid due to palpation Extremity: GENERAL: Yes normal exam except as noted and No edema Neuro: COMMON NORMALS: moves all extremities SENSORIUM/ORIENTATION: Yes alert and No Orientation impaired Psych: COMMON NORMALS: mental status grossly normal and Normal thought process present THOUGHT PROCESS: Normal thought process present Course Vital Signs: Vital signs: Vital Signs Temperature 98.3 F 05/10/23 07:12 Pulse Rate 60 05/10/23 10:08 Respiratory Rate 16 05/10/23 07:28 Blood Pressure 120/72 05/10/23 10:08 Pulse Oximetry 98 05/10/23 10:08 Oxygen Delivery Me thod Room Air 05/10/23 07:28 MDM - Chest Pain Medical Decision Making 22-year-old female presenting with chest and at times abdominal pain. Exam as above. Nontoxic. No evidence of acute surgical abdomen. EKG demonstrates sinus rhythm with mild irregularity, normal axis and intervals, no STEMI. Labs with no significant hematologic or metabolic abnormalities to explain symptoms. Hematuria without clear evidence of UTI given nitrite and leukocyte esterase negative and squamous epithelial contamination. Clinical history not consistent with nephrolithiasis or pyelonephritis. Self swab wet prep positive for yeast. Chest x-ray with no lobar consolidation or pneumothorax. Patient feels improved with analgesia. Most likely etiology of symptoms is vaginal candidal infection and unspecified chest pain possibly with exacerbation of underlying asthma secondary to smoking. The results of ED evaluation were discussed with the patient including prescriptions and/or symptomatic cares (if applicable) including appropriate and responsible use, followup plan, and return precautions. The patient verbalized understanding and felt safe for discharge. Medical Records I reviewed the patient's medical records. Lab Data I reviewed the patient's lab results. 05/10/23 07:18 05/10/23 07:18 Radiology Impressions Chest X-Ray 05/10/23 07:27 IMPRESSION: No acute findings. Laboratory Results WBC 7.4 10^3/uL (4.0-10.0) 05/10/23 07:18 RBC 4.59 10^6/uL (4.1-5.3) 05/10/23 07:18 Hgb 12.4 g/dL (11.5-15.3) 05/10/23 07:18 Hct 38.7 % (37.0-47.0) 05/10/23 07:18 MCV 84.3 fl (81-99) 05/10/23 07:18 MCH 27.0 pg (28.0-34.0) L 05/10/23 07:18 MCHC 32.0 g/dL (30.0-36.0) 05/10/23 07:18 RDW 13.7 % (12.1-15.1) 05/10/23 07:18 Plt Count 302 10^3/cmm (130-400) 05/10/23 07:18 MPV 10.0 fL (7.4-10.4) 05/10/23 07:18 Neut % (Auto) 67.1 % 05/10/23 07:18 Lymph % (Auto) 25.5 % 05/10/23 07:18 Gillespie % (Auto) 5.4 % 05/10/23 07:18 Eos % (Auto) 1.6 % 05/10/23 07:18 Baso % (Auto) 0.1 % 05/10/23 07:18 Neut # (Auto) 4.98 10^3/uL (1.8-7.7) 05/10/23 07:18 Lymph # (Auto) 1.9 10^3/uL (0.8-4.8) 05/10/23 07:18 Gillespie # (Auto) 0.4 10^3/uL (0.2-0.9) 05/10/23 07:18 Eos # (Auto) 0.1 10^3/uL (0.0-0.8) 05/10/23 07:18 Baso # (Auto) 0.0 10^3/uL (0.0-0.1) 05/10/23 07:18 Nucleated RBC % (auto) 0 % 05/10/23 07:18 Nucleated RBCs # 0.0 /100WBC 05/10/23 07:18 Sodium 137 mmol/L (136-145) 05/10/23 07:18 Potassium 4.3 mmol/L (3.5-5.1) 05/10/23 07:18 Chloride 102 mmol/L (98-107) 05/10/23 07:18 Carbon Dioxide 23 mmol/L (22-29) 05/10/23 07:18 Anion Gap 16.3 (5-19) 05/10/23 07:18 BUN 10 mg/dL (6-20) 05/10/23 07:18 Creatinine 0.8 mg/dL (0.5-0.9) 05/10/23 07:18 GFR Calculation 88.9 mL/min (90-130) L 05/10/23 07:18 Glucose 91 mg/dL (65-115) 05/10/23 07:18 Calculated Osmolality 283 mOsm/kg (285-295) L 05/10/23 07:18 Calcium 9.4 mg/dL (8.5-10.5) 05/10/23 07:18 Total Bilirubin 0.3 mg/dL (0.15-1.2) 05/10/23 07:18 AST 13 U/L (0-32) 05/10/23 07:18 ALT 17 U/L (0-33) 05/10/23 07:18 Alkaline Phosphatase 107 U/L (35-105) H 05/10/23 07:18 Total Protein 6.7 g/dL (6.6-8.7) 05/10/23 07:18 Albumin 4.4 g/dL (3.5-5.2) 05/10/23 07:18 Globulin 2.3 g/dL (1.3-4.6) 05/10/23 07:18 Lipase 13 U/L (13-60) 05/10/23 07:18 HCG, Qual Negative (Negative) 05/10/23 07:18 Urine Color Yellow (Yellow) 05/10/23 07:18 Urine Appearance Hazy (CLEAR) A 05/10/23 07:18 Urine pH 5 (5-7) 05/10/23 07:18 Ur Specific [place] 1.025 (1.005-1.030) 05/10/23 07:18 Urine Protein Neg (Negative) 05/10/23 07:18 Urine Glucose (UA) Norm (Normal) 05/10/23 07:18 Urine Ketones Negative (Negative) 05/10/23 07:18 Urine Blood 2+ (Negative) H 05/10/23 07:18 Urine Nitrate Negative (Negative) 05/10/23 07:18 Urine Bilirubin Neg (Negative) 05/10/23 07:18 Urine Urobilinogen Norm mg/dL (Negative) 05/10/23 07:18 Ur Leukocyte Esterase Negative (Negative) 05/10/23 07:18 Urine RBC 0-4 /hpf (0-2) H 05/10/23 07:18 Urine WBC Rare /hpf (0-5) 05/10/23 07:18 Ur Squamous Epith Cells 5-10 /hpf (0-5) H 05/10/23 07:18 Amorphous Sediment Not Reportable 05/10/23 07:18 Urine Bacteria 2+ /hpf (NONE) H 05/10/23 07:18 Urine Mucus 1+ /hpf 05/10/23 07:18 Discharge Plan Discharge Patient Disposition: Home Clinical Impression: Chest pain, Asthma, Abdominal pain, Vaginal yeast infection Condition: Stable Prescriptions: New Diflucan 150 mg tablet 150 mg PO Q3D Qty: 2 0RF Rx Instructions: may repeat second dose 72 hrs after first dose if symptoms persist azithromycin 250 mg tablet See Rx Instructions .ROUTE .COMPLEX Qty: 6 0RF Rx Instructions: For 250 mg dose pack: take 500 mg today (day 1), then 250 mg for 4 days (days 2-5) No Action acetaminophen 325 mg Capsule 650 mg PO QID PRN (Reason: Pain) Discharge Orders: Discharge ED (Routine); Ordered 05/10/23 Ordered By: Quentin Moore Referrals: Moreno Perry MD [Primary Care Provider] - Discharge Diet: Usual diet Discharge Activity: Resume usual activity Patient Instructions: Chest Pain (ED), Yeast Infection (ED), Abdominal Pain (ED) Activity Restrictions/Additional Instructions: Thank you for visiting the emergency department. You were seen and evaluated for chest pain and abdominal pain. The exact cause your symptoms is unclear. You do have a yeast infection which can cause pelvic discomfort. Additionally given history of asthma and vaping you are at higher risk for atypical infections that do not show up well on x-ray. You will be treated with antifungal and antibiotic. You may use [id number] medications such as acetaminophen and ibuprofen for pain however please do not exceed the daily recommended dosage as listed on the packaging and please keep in mind that many namebrand medications contain the same active ingredients. Please avoid these medications if previously instructed to do so by another physician due to other underlying medical condition. Follow-up with a primary care provider. Return to the emergency department for uncontrolled symptoms or anything else that you are concerned about and feel needs emergency department evaluation. Stand Alone Forms: Work/School Release Coding Level of Care Code ED Business Editor for Tejas Marquez
--- NOTE | 2023-05-10 07:27 | XRR_ITS ---
PROCEDURE INFORMATION: Exam: XR Chest Exam date and time: 05/10/2023 7:51 AM Age: 22 years old Clinical indication: Pain; Chest pressure; Additional info: R chest pain TECHNIQUE: Imaging protocol: Radiologic exam of the chest. Views: 1 view. COMPARISON: No relevant prior studies available. FINDINGS: Lungs: Unremarkable. No consolidation. Pleural spaces: Unremarkable. No pleural effusion. No pneumothorax. Heart/Mediastinum: Unremarkable. No cardiomegaly. Bones/joints: Unremarkable. XR/XR chest 1V portable [id number] IMPRESSION: No acute findings.
[2023-05-10 07:28] VITALS: BP 112/76; PULSE 75; RESP 16; O2SAT 96
[2023-05-10 07:37] LABS: Basophils % 0.1 %; Eosinophils # 0.1 10^3/uL (0.0-0.8); Eosinophils % 1.6 %; Hematocrit 38.7 % (37.0-47.0); Hemoglobin 12.4 g/dL (11.5-15.3); Lymphocytes # 1.9 10^3/uL (0.8-4.8); Lymphocytes % 25.5 %; Mean Corpuscular Volume 84.3 fl (81-99); Monocytes # 0.4 10^3/uL (0.2-0.9); Monocytes % 5.4 %; Neutrophils # 4.98 10^3/uL (1.8-7.7); Neutrophils % 67.1 %; Nucleated Red Blood Cells % 0 %; Platelet Count 302 10^3/cmm (130-400); Red Blood Count 4.59 10^6/uL (4.1-5.3); Red Cell Distribution Width 13.7 % (12.1-15.1); White Blood Count 7.4 10^3/uL (4.0-10.0)
[2023-05-10 07:50] LABS: HCG Qualitative Urine. Negative (Negative)
[2023-05-10 07:51] LABS: Add Urine Microscopic? YES; Bilirubin Urine Neg (Negative); Blood Urine 2+ (Negative); Glucose Urine UA Norm (Normal); Ketones Urine Negative (Negative); Leukocyte Esterase Urine Negative (Negative); Nitrate Urine Negative (Negative); Protein Urine Neg (Negative); Specific Gravity, Urine 1.025 (1.005-1.030); Urine Appearance Hazy (CLEAR); Urine Color Yellow (Yellow); Urobilinogen Urine Norm (Negative); pH Urine 5 (5-7)
[2023-05-10 07:53] LABS: Bacteria Urine 2+ /hpf; Mucus Urine 1+ /hpf; RBC Urine 0-4 /hpf (0-2); WBC Urine RARE /hpf (0-5)
[2023-05-10 07:54] LABS: Add Urine Culture? Yes; Alanine Aminotransferase 17 U/L (0-33); Albumin Level 4.4 g/dL (3.5-5.2); Alkaline Phosphatase 107 U/L (35-105); Anion Gap 16.3 (5-19); Aspartate Amino Transferase 13 U/L (0-32); Blood Urea Nitrogen 10 mg/dL (6-20); Calcium 9.4 mg/dL (8.5-10.5); Carbon Dioxide 23 mmol/L (22-29); Chloride 102 mmol/L (98-107); Globulin 2.3 g/dL (1.3-4.6); Glomerular Filtration Rate 88.9 mL/min (90-130); Glucose 91 mg/dL (65-115); Lipase 13 U/L (13-60); Osmolality Calculated 283 mOsm/kg (285-295); Potassium 4.3 mmol/L (3.5-5.1); Sodium 137 mmol/L (136-145); Total Bilirubin 0.3 mg/dL (0.15-1.2); Total Protein 6.7 g/dL (6.6-8.7)
[2023-05-10] MEDS: ketorolac 30 mg/mL INJ 15 MG IVP (09:02)
[2023-05-10] MEDS: acetaminophen 500 mg Tablet 1000 MG PO (09:02)
[2023-05-10 10:08] VITALS: BP 120/72; PULSE 60; O2SAT 98
== END 2023-05-10 10:09 | disposition home or self-care (01) ==
PROVIDERS: Emergency Provider Emergency Medicine; PCP Family Medicine Adult Medicine
DX: R07.89 Other chest pain (principal); R10.30 Lower abdominal pain, unspecified; J45.909 Unspecified asthma, uncomplicated; F17.210 Nicotine dependence, cigarettes, uncomplicated; B37.31 Acute candidiasis of vulva and vagina
CPT/HCPCS: 71045; 80053; 81001; 81025; 83690; 85025; 87086; 87210; 93005; 96374; 99285; J1885

== ENCOUNTER 2023-12-14 06:34 | Emergency (ER) | payer OTHER, SELFPAY ==
[2023-12-14] VITALS (8 sets, daily range): BP systolic 121–155; BP diastolic 62–95; PULSE 82–117; RESP 12–19; TEMP 37.4; O2SAT 95–98; BMI 36.3
--- NOTE | 2023-12-14 06:40 | XRR_ITS ---
PROCEDURE INFORMATION: Exam: XR Chest Exam date and time: 12/14/2023 6:52 AM Age: 23 years old Clinical indication: Cough and dyspnea; Additional info: Dyspnea/cough TECHNIQUE: Imaging protocol: Radiologic exam of the chest. Views: 1 view. COMPARISON: CR XR chest 1V portable [id number] 05/10/2023 7:51 AM FINDINGS: Lungs: Unremarkable. No consolidation. Pleural spaces: Unremarkable. No pleural effusion. No pneumothorax. Heart/Mediastinum: Unremarkable. No cardiomegaly. Bones/joints: Unremarkable. XR/XR chest 1V portable [id number] IMPRESSION: No acute findings.
[2023-12-14 06:57] LABS: Basophils % 0.4 %; Eosinophils # 0.1 10^3/uL (0.0-0.8); Eosinophils % 1.7 %; Hematocrit 38.4 % (36-47); Lymphocytes # 0.7 10^3/uL (0.8-4.8); Lymphocytes % 12.9 %; Mean Corpuscular HGB Conc 33.3 g/dL (30-55); Mean Corpuscular Hemoglobin 28.1 pg (27-33); Mean Corpuscular Volume 84.2 fl (85-98); Mean Platelet Volume 9.6 fL (7.4-10.4); Monocytes # 0.5 10^3/uL (0.2-0.9); Monocytes % 9.6 %; Neutrophils # 4.07 10^3/uL (1.8-7.7); Neutrophils % 75.2 %; Nucleated Red Blood Cells % 0 %; Platelet Count 295 10^3/cmm (157-399); Red Blood Count 4.56 10^6/uL (3.85-5.65); Red Cell Distribution Width 13.7 % (12.1-15.1); White Blood Count 5.41 10^3/uL (3.29-11.43)
[2023-12-14 07:13] LABS: HCG, Serum Qual Negative (Negative)
--- NOTE | 2023-12-14 07:15 | W.ED.CHESTPA ---
HPI - Chest Pain General: Chief Complaint: Chest Pain Stated Complaint: chest pains Time Seen by Provider: 12/14/23 06:39 Source: patient Mode of arrival: ambulatory History of Present Illness: 23-year-old female presents emergency room with frontal tension-like headache across the occipital and retro-orbital region. Nausea photophobia and autophobia has had several days of these symptoms. She tried urwe-ndt-meehgil medications with no relief. She has had headaches in the past but not to this intensity no vomiting but has been nauseated. No associated trauma MD complaint: chest pain and other (headache) Onset (ago): day(s) Timing of current episode: episodic (headache) Prior episodes: Yes Onset: during rest Pain radiation: none Relieving factors: nothing Exacerbating factors: nothing Associated symptoms: Reports nausea; Deny abdominal pain, diaphoresis, dyspnea, fever(s), leg edema, palpitations, sense of impending doom, syncope or vomiting Review of Systems Const: Denies: fever(s), chills or diaphoresis Card: Reports: chest pain; Denies: palpitations or syncope Resp: Denies: dyspnea GI: Reports: nausea; Denies: abdominal pain or vomiting : Denies: dysuria, urinary frequency or urinary urgency Musc: Denies: neck pain or back pain Skin/Breast: Denies: rash Neuro: Reports: headache(s) [facility] ED PFSH: Medical History Anxiety and depression Asthma History of anorexia nervosa History of hallucinations as a child, does not have them much anymore Lordosis PTSD (post-traumatic stress disorder) Scoliosis Surgical History No pertinent past surgical history Status post section Family History Grandfather Thyroid disease Maternal CAD (coronary artery disease) Maternal Cancer Maternal--skin cancer Clotting disorder Maternal Hyperlipidemia Maternal Stroke Maternal Mother Seizures Hypertension Diabetes Cancer skin cancer Clotting disorder Grandfather Hypertension Diabetes Maternal Grandmother Hypertension Maternal Family/Other Stroke Maternal aunts Denies family history of Chronic kidney disease (CKD) Bleeding disorder Social History Smoking and tobacco/nicotine status: current every day tobacco/nicotine user (1-2 ppd) cigarettes Alcohol intake: never Substance/Drug Use: current Other substance/drug use details: smokes 6-7 times daily Physical Exam Const: COMMON NORMALS: no acute distress GENERAL APPEARANCE: cooperative and comfortable ORIENTATION/CONSCIOUSNESS: Yes awake, Yes oriented to person, Yes oriented to place and Yes oriented to time HENMT: COMMON NORMALS: normocephalic, atraumatic and hearing grossly normal bilaterally HEAD & SCALP: normocephalic and atraumatic Resp: COMMON NORMALS: normal respiratory effort, No retractions, No use of accessory muscles and clear to auscultation bilaterally AUSCULTATION: clear to auscultation bilaterally Cardio: COMMON NORMALS: regular rate, regular rhythm and No murmurs present (Cardio) RATE: regular rate RHYTHM: regular rhythm GI: COMMON NORMALS: Soft to palpation and No hepatosplenomegaly present AUSCULTATION: Yes normoactive bowel sounds PALPATION: Yes Soft to palpation, No Tenderness to palpation present (GI), No Guarding due to palpation present (GI) and Yes No hepatosplenomegaly present Extremity: COMMON NORMALS: normal to inspection, capillary refill normal, no clubbing, cyanosis or edema, no calf tenderness and no pedal edema Neuro: SENSORIUM/ORIENTATION: Yes oriented to person, Yes oriented to place and Yes oriented to time Skin: COMMON NORMALS: no rashes or lesions noted GENERAL SKIN EXAM: no rashes or lesions noted Course Vital Signs: Vital signs: Vital Signs Temperature 99.3 F 12/14/23 06:37 Pulse Rate 87 12/14/23 09:38 Respiratory Rate 14 12/14/23 09:38 Blood Pressure 138/62 12/14/23 09:38 Pulse Oximetry 96 12/14/23 09:38 Oxygen Delivery Me thod Room Air 12/14/23 09:00 MDM - Chest Pain Medical Decision Making Symptoms improved after treatment given. CT head negative. Discharge patient home follow-up with primary care if continues to have headache issues. No neurologic deficit noted at the time of discharge Medical Records I reviewed the patient's medical records. Lab Data I reviewed the patient's lab results. 12/14/23 06:42 12/14/23 06:42 Radiology Impressions Chest X-Ray 12/14/23 06:40 IMPRESSION: No acute findings. Head CT 12/14/23 07:52 IMPRESSION: No acute intracranial abnormality. Laboratory Results WBC 5.41 10^3/uL (3.29-11.43) 12/14/23 06:42 RBC 4.56 10^6/uL (3.85-5.65) 12/14/23 06:42 Hgb 12.80 g/dL (11.27-16.99) 12/14/23 06:42 Hct 38.4 % (36-47) 12/14/23 06:42 MCV 84.2 fl (85-98) L 12/14/23 06:42 MCH 28.1 pg (27-33) 12/14/23 06:42 MCHC 33.3 g/dL (30-55) 12/14/23 06:42 RDW 13.7 % (12.1-15.1) 12/14/23 06:42 Plt Count 295 10^3/cmm (157-399) 12/14/23 06:42 MPV 9.6 fL (7.4-10.4) 12/14/23 06:42 Neut % (Auto) 75.2 % 12/14/23 06:42 Lymph % (Auto) 12.9 % 12/14/23 06:42 Beauregard % (Auto) 9.6 % 12/14/23 06:42 Eos % (Auto) 1.7 % 12/14/23 06:42 Baso % (Auto) 0.4 % 12/14/23 06:42 Neut # (Auto) 4.07 10^3/uL (1.8-7.7) 12/14/23 06:42 Lymph # (Auto) 0.7 10^3/uL (0.8-4.8) L 12/14/23 06:42 Beauregard # (Auto) 0.5 10^3/uL (0.2-0.9) 12/14/23 06:42 Eos # (Auto) 0.1 10^3/uL (0.0-0.8) 12/14/23 06:42 Baso # (Auto) 0.0 10^3/uL (0.0-0.1) 12/14/23 06:42 Nucleated RBC % (auto) 0 % 12/14/23 06:42 Nucleated RBCs # 0.0 /100WBC 12/14/23 06:42 Sodium 130 mmol/L (136-145) L 12/14/23 06:42 Potassium 3.6 mmol/L (3.5-5.1) 12/14/23 06:42 Chloride 96 mmol/L (98-107) L 12/14/23 06:42 Carbon Dioxide 24 mmol/L (22-29) 12/14/23 06:42 Anion Gap 13.6 (5-19) 12/14/23 06:42 BUN 8 mg/dL (6-20) 12/14/23 06:42 Creatinine 0.8 mg/dL (0.5-0.9) 12/14/23 06:42 GFR Calculation 88.1 mL/min (90-130) L 12/14/23 06:42 Glucose 103 mg/dL (65-115) 12/14/23 06:42 Calculated Osmolality 269 mOsm/kg (285-295) L 12/14/23 06:42 Calcium 9.5 mg/dL (8.5-10.5) 12/14/23 06:42 Total Bilirubin 0.7 mg/dL (0.15-1.2) 12/14/23 06:42 AST 20 U/L (0-32) 12/14/23 06:42 ALT 21 U/L (0-33) 12/14/23 06:42 Alkaline Phosphatase 107 U/L (35-105) H 12/14/23 06:42 Total Protein 7.7 g/dL (6.6-8.7) 12/14/23 06:42 Albumin 4.5 g/dL (3.5-5.2) 12/14/23 06:42 Globulin 3.2 g/dL (1.3-4.6) 12/14/23 06:42 HCG, Qual Negative (Negative) 12/14/23 06:42 All radiology interpretation(s) finalized by discharge Discharge Plan Discharge Patient Disposition: Home Clinical Impression: Tension headache Condition: Stable Prescriptions: No Action No Known Home Medications Discharge Orders: Discharge ED (Routine); Ordered 12/14/23 Ordered By: Khoi Bridges Referrals: Moreno Perry MD [Primary Care Provider] - Discharge Diet: Usual diet Discharge Activity: Resume usual activity Patient Instructions: Opioid Safety, Pain Management Activity Restrictions/Additional Instructions: Thank you for choosing [facility] for your healthcare needs today. Please realize this is an emergency room and that we are providing you with a medical screening exam and this may not be complete and all inclusive of all the testing and or work up that you may need to determine your ailment or severity of your illness. It is very important that you follow up as instructed or that you return to the Emergency Department should you have concerns or if your condition changes or worsens in any way. You were seen today for headache. CT of your head was negative since your symptoms improved with medications given will discharge home. If you have recurrent headaches, recommend you follow-up with your primary care doctor for further evaluation and and treatment options Coding Level of Care Code ED Culinary Assistant for Tejas Marquez
[2023-12-14 07:18] LABS: Alanine Aminotransferase 21 U/L (0-33); Albumin Level 4.5 g/dL (3.5-5.2); Alkaline Phosphatase 107 U/L (35-105); Anion Gap 13.6 (5-19); Aspartate Amino Transferase 20 U/L (0-32); Blood Urea Nitrogen 8 mg/dL (6-20); Calcium 9.5 mg/dL (8.5-10.5); Carbon Dioxide 24 mmol/L (22-29); Chloride 96 mmol/L (98-107); Creatinine Clr Calc Pharmacy 130.7874; Globulin 3.2 g/dL (1.3-4.6); Glomerular Filtration Rate 88.1 mL/min (90-130); Glucose 103 mg/dL (65-115); Osmolality Calculated 269 mOsm/kg (285-295); Potassium 3.6 mmol/L (3.5-5.1); Sodium 130 mmol/L (136-145); Total Bilirubin 0.7 mg/dL (0.15-1.2); Total Protein 7.7 g/dL (6.6-8.7)
--- NOTE | 2023-12-14 07:52 | CTR_ITS ---
PROCEDURE INFORMATION: Exam: CT Head Without Contrast Exam date and time: 12/14/2023 8:16 AM Age: 23 years old Clinical indication: Pain; Headache; Migraine; Additional info: New onset migraine TECHNIQUE: Imaging protocol: Computed tomography of the head without contrast. Radiation optimization: All CT scans at this facility use at least one of these dose optimization techniques: automated exposure control; mA and/or kV adjustment per patient size (includes targeted exams where dose is matched to clinical indication); or iterative reconstruction. COMPARISON: No relevant prior studies available. RADIATION DOSE METRICS: Total DLP (mGy-cm): 1015.38 FINDINGS: Brain: Normal. No hemorrhage. Unremarkable white matter. No mass effect. Cerebral ventricles: No ventriculomegaly. Paranasal sinuses: Visualized sinuses are unremarkable. No fluid levels. Mastoid air cells: Visualized mastoid air cells are well aerated. Bones/joints: Unremarkable. No acute fracture. Soft tissues: Unremarkable. CT/CT head wo con* [id number] IMPRESSION: No acute intracranial abnormality.
[2023-12-14] MEDS: ketorolac 30 mg/mL INJ IVP (07:59)
[2023-12-14] MEDS: diphenhydrAMINE 50 mg/mL SDV 1mL IVP (07:59)
== END 2023-12-14 09:49 | disposition home or self-care (01) ==
PROVIDERS: Emergency Provider Family Medicine; PCP Family Medicine Adult Medicine
DX: G44.209 Tension-type headache, unspecified, not intractable (principal); F17.210 Nicotine dependence, cigarettes, uncomplicated
CPT/HCPCS: 70450; 71045; 80053; 84703; 85025; 96374; 96375; 99285; J1200; J1885

== ENCOUNTER → 2023-12-16 14:53 | Outpatient (BNVA) | payer OTHER, SELFPAY | PROVIDERS: PCP Family Medicine Adult Medicine; Visit Provider Nurse Practitioner | DX: R09.81 Nasal congestion | CPT/HCPCS: 87400 ==

== ENCOUNTER → 2024-07-01 10:16 | Outpatient (BNVA) | payer OTHER, SELFPAY | PROVIDERS: PCP Family Medicine Adult Medicine; Visit Provider Nurse Practitioner Family | DX: N92.0 Excessive and frequent menstruation with regular cycle (principal) | CPT/HCPCS: 81025 ==

== ENCOUNTER 2024-08-12 11:16 | Emergency (ER) | payer OTHER, SELFPAY ==
[2024-08-12 11:28] VITALS: BP 145/97; PULSE 76; RESP 16; TEMP 36.8; O2SAT 99; BMI 38.7
--- NOTE | 2024-08-12 11:33 | ED_ITS ---
HPI - Back Pain/Injury General: Chief Complaint: Back Pain/Injury Stated Complaint: back pain Time Seen by Provider: 08/12/24 11:28 History of Present Illness: 23-year-old female presents emergency ro om with low back pain. She says she bent down to pick something up and feels like she tweaked something. No saddle numbness, no urinary retention or incontinence, no focal motor deficit, no sensory deficit. no recent fever. no cough. no shortness of breath. no chest pain. no abdominal pain. no nausea or vomiting. no dysuria. no altered mental status. no edema. Related Data Previous Rx's Medication Instructions Recorded albuterol sulfate 90 mcg/actuation 2 puff inhalation Q6H PRN 07/07/24 aerosol inhaler (Ventolin HFA) shortness of breath or wheezing #8.5 grams prednisone 20 mg tablet 20 mg PO BID 5 days #10 tabs 07/07/24 cyclobenzaprine 10 mg tablet 10 mg PO Q8H PRN muscle spasm #20 08/12/24 tabs dexamethasone 6 mg tablet 6 mg PO DAILY 5 days #5 tabs 08/12/24 diclofenac sodium 50 mg 50 mg PO BID PRN pain #14 tabs 08/12/24 tablet,delayed release hydrocodone 5 mg-acetaminophen 325 1 tab PO Q8H PRN pain #14 tabs 08/12/24 mg tablet Allergies Allergy/AdvReac Type Severity Reaction Status Date / Time bee venom protein (honey bee) Allergy ALGY-Swell Verified 07/07/24 11:03 Lip/Tongue/Throat codeine Allergy ALGY-Swell Verified 07/07/24 11:03 Lip/Tongue/Throat Review of Systems Narrative: Constitutional symptoms: Negative except as documented in HPI. Skin symptoms: Negative except as documented in HPI. Eye symptoms: Negative except as documented in HPI. ENMT symptoms: Negative except as documented in HPI. Respiratory symptoms: Negative except as documented in HPI. Cardiovascular symptoms: Negative except as documented in HPI. Gastrointestinal symptoms: Negative except as documented in HPI. Genitourinary symptoms: Negative except as documented in HPI. Musculoskeletal symptoms: Negative except as documented in HPI. Neurologic symptoms: Negative except as documented in HPI. Psychiatric symptoms: Negative except as documented in HPI. Endocrine symptoms: Negative except as documented in HPI. PFS ED PFSH: Medical History Anxiety and depression Scoliosis History of anorexia nervosa Lordosis History of hallucinations as a child, does not have them much anymore PTSD (post-traumatic stress disorder) Asthma Surgical History Status post section No pertinent past surgical history Family History Grandfather Thyroid disease Maternal CAD (coronary artery disease) Maternal Cancer Maternal--skin cancer Clotting disorder Maternal Hyperlipidemia Maternal Stroke Maternal Mother Seizures Hypertension Diabetes Cancer skin cancer Clotting disorder Grandfather Hypertension Diabetes Maternal Grandmother Hypertension Maternal Family/Other Stroke Maternal aunts Denies family history of Chronic kidney disease (CKD) Bleeding disorder Social History Smoking and tobacco/nicotine status: current every day tobacco/nicotine user cigarettes Alcohol intake: never Substance/Drug Use: current Other substance/drug use details: smokes 6-7 times daily Physical Exam Narrative: EXAM NARRATIVE: General: Alert, no acute distress. Head: Normocephalic Neck: Trachea midline Eye: Extraocular movements are intact. Ears, nose, mouth and throat: Oral mucosa moist Respiratory: Respirations are non-labored Musculoskeletal: Normal ROM Back: no step off, no focal tenderness, some paraspinal muscle tenderness Neurological: Alert and oriented to person, place, time, and situation, No focal neurological deficit observed. Psychiatric: Cooperative, appropriate mood & affect. Course Vital Signs: Vital signs: Vital Signs Temperature 98.3 F 08/12/24 11:28 Pulse Rate 76 08/12/24 11:28 Respiratory Rate 16 08/12/24 11:28 Blood Pressure 145/97 08/12/24 11:28 Pulse Oximetry 99 08/12/24 11:28 Oxygen Delivery Me thod Room Air 08/12/24 11:28 MDM - Back Pain/Injury Medical Decision Making Assessment and plan: Lumbar strain ?IM Toradol, IM Norflex, IM Decadron and p.o. Philipp in the emergency room. - Discharged home - Discussed plan with patient. Answered any questions. - Evaluation and treatment of this problem were appropriate in the emergency setting. No radiology studies performed this visit Discharge Plan Discharge Patient Disposition: Home Clinical Impression: Lumbar strain Condition: Stable Prescriptions: New cyclobenzaprine 10 mg tablet 10 mg PO Q8H PRN (Reason: muscle spasm) Qty: 20 0RF hydrocodone-acetaminophen 5-325 mg tablet 1 tab PO Q8H PRN (Reason: pain) Qty: 14 0RF Rx Instructions: Take 1/2 to 1 tab every 8 hours as needed for pain dexamethasone 6 mg tablet 6 mg PO DAILY 5 Days Qty: 5 0RF diclofenac sodium 50 mg tablet,delayed release (DR/EC) 50 mg PO BID PRN (Reason: pain) Qty: 14 0RF No Action prednisone 20 mg tablet 20 mg PO BID 5 Days Qty: 10 0RF albuterol sulfate [Ventolin HFA] 90 mcg/actuation HFA aerosol inhaler 2 puff inhalation Q6H PRN (Reason: shortness of breath or wheezing) Qty: 8.5 0RF Discharge Orders: Discharge ED (Routine); Ordered 08/12/24 Ordered By: Roro Tariq Referrals: Moreno Perry MD [Primary Care Provider] - Discharge Diet: Usual diet Discharge Activity: Increase activity as tolerated Patient Instructions: Opioid Safety, Pain Management Activity Restrictions/Additional Instructions: Thank you for choosing [facility] for your healthcare needs today. Please realize this is an emergency room and that we are providing you with a medical screening exam and this may not be complete and all inclusive of all the testing and or work up that you may need to determine your ailment or severity of your illness. You have been screened and evaluated and felt safe for discharge. Health conditions do change or evolve sometimes and as such it is important that you follow up with your Primary Doctor to be re checked, 3-5 days is a general good time frame for follow up. You are always welcome to return to the ED for re assessment if your symptoms are worsening or you have new concerns Coding Level of Care Code ED Digital Marketing Program Manager for Tejas Marquez
[2024-08-12] MEDS: dexamethasone 10 mg/mL INJ IM (11:49)
[2024-08-12] MEDS: ketorolac 60 mg/2 mL INJ IM (11:50)
[2024-08-12] MEDS: orphenadrine 30 mg/mL Inj 2 mL 60 MG IM (11:50)
[2024-08-12] MEDS: HYDROcodone-acetaminophen 5-325 mg Tablet 1 TAB PO (11:50)
[2024-08-12 12:03] VITALS: BP 142/89; PULSE 74; O2SAT 100
== END 2024-08-12 12:04 | disposition home or self-care (01) ==
PROVIDERS: Emergency Provider Emergency Medicine; PCP Family Medicine Adult Medicine
DX: S39.012A Strain of muscle, fascia and tendon of lower back, initial encounter (principal); X50.0XXA Overexertion from strenuous movement or load, initial encounter
CPT/HCPCS: 96372; 99284; J1100; J1885; J2360

== ENCOUNTER 2024-11-01 15:22 | Emergency (ER) | payer OTHER, SELFPAY ==
[2024-11-01 15:50] VITALS: BP 132/91; PULSE 85; TEMP 36.9; O2SAT 97; BMI 40.3
[2024-11-01 16:22] LABS: Basophils % 0.1 %; Eosinophils # 0.2 10^3/uL (0.0-0.8); Hematocrit 38.1 % (36-47); Lymphocytes # 1.1 10^3/uL (0.8-4.8); Lymphocytes % 15.1 %; Mean Corpuscular HGB Conc 33.3 g/dL (30-55); Mean Corpuscular Volume 83.9 fl (85-98); Mean Platelet Volume 9.6 fL (7.4-10.4); Monocytes # 0.3 10^3/uL (0.2-0.9); Monocytes % 4.6 %; Neutrophils # 5.41 10^3/uL (1.8-7.7); Neutrophils % 77.1 %; Nucleated Red Blood Cells % 0 %; Platelet Count 277 10^3/cmm (157-399); Red Blood Count 4.54 10^6/uL (3.85-5.65); Red Cell Distribution Width 13.4 % (12.1-15.1); White Blood Count 7.02 10^3/uL (3.29-11.43)
[2024-11-01 16:36] LABS: HCG, Serum Qual Negative (Negative)
[2024-11-01 16:43] LABS: Alanine Aminotransferase 19 U/L (0-33); Albumin Level 4.2 g/dL (3.5-5.2); Alkaline Phosphatase 102 U/L (35-105); Anion Gap 14.7 (5-19); Aspartate Amino Transferase 18 U/L (0-32); Blood Urea Nitrogen 9 mg/dL (6-20); Calcium 9.1 mg/dL (8.5-10.5); Carbon Dioxide 23 mmol/L (22-29); Chloride 104 mmol/L (98-107); Creatinine Clr Calc Pharmacy 184.7362; Globulin 2.6 g/dL (1.3-4.6); Glomerular Filtration Rate 122.8 mL/min (90-130); Glucose 87 mg/dL (65-115); Lipase 10 U/L (13-60); Osmolality Calculated 284 mOsm/kg (285-295); Potassium 3.7 mmol/L (3.5-5.1); Sodium 138 mmol/L (136-145); Total Bilirubin 0.8 mg/dL (0.15-1.2); Total Protein 6.8 g/dL (6.6-8.7)
[2024-11-01 17:25] VITALS: BP 122/68; PULSE 81; O2SAT 97
[2024-11-01 18:30] VITALS: BP 127/90; PULSE 104; RESP 16; O2SAT 100
--- NOTE | 2024-11-01 18:42 | CTR_ITS ---
PROCEDURE INFORMATION: Exam: CT Abdomen And Pelvis With Contrast Exam date and time: 11/01/2024 7:24 PM Age: 23 years old Clinical indication: Abdominal pain; Generalized; Prior surgery; Surgery date: 6+ months; Surgery type: Csection; Additional info: Abd pain TECHNIQUE: Imaging protocol: Computed tomography of the abdomen and pelvis with contrast. Radiation optimization: All CT scans at this facility use at least one of these dose optimization techniques: automated exposure control; mA and/or kV adjustment per patient size (includes targeted exams where dose is matched to clinical indication); or iterative reconstruction. Contrast material: OMNIPAQUE 350; Contrast volume: 100 ml; Contrast route: INTRAVENOUS (IV); COMPARISON: CR XR sacrum coccyx min 2V [id number] 02/17/2023 6:57 AM RADIATION DOSE METRICS: Total DLP (mGy-cm): 1078.73 FINDINGS: Lungs: Subsegmental bibasilar atelectasis. The visualized lung bases are otherwise grossly clear. Diaphragm: No evidence of diaphragmatic defect. Liver: Hepatic steatosis. No evidence of focal hepatic lesion. Gallbladder and biliary ducts: Unremarkable. No intra-hepatic or extra-hepatic biliary dilatation. Pancreas: Unremarkable. Spleen: Unremarkable. Adrenal glands: Unremarkable. Kidneys and ureters: No renal parenchymal abnormality. No hydronephrosis or ureteral stone. Stomach and bowel: No evidence of bowel obstruction or perienteric inflammatory changes. Appendix: Normal appendix. Intraperitoneal space: No evidence of free air or fluid collection. Vasculature: No aneurysmal dilatation or dissection of the abdominal aorta. The celiac trunk, SMA and JOLANTA are grossly patent. No evidence of IVC thrombus. The portal vein, SMV and splenic veins are grossly patent. Lymph nodes: No adenopathy. Urinary bladder: Grossly unremarkable. Reproductive: Grossly unremarkable. Bones/joints: No evidence of acute fracture or aggressive osseous lesion. Soft tissues: No evidence of fluid collection or hematoma in the superficial soft tissues. CT/CT abdomen pelvis w con* [id number] IMPRESSION: 1. No evidence of acute abnormality in the abdomen or pelvis.
--- NOTE | 2024-11-01 18:43 | ED_ITS ---
HPI - Abdominal Pain 2 General: Chief Complaint: Abdominal Pain Stated Complaint: abd pain and back pain Time Seen by Provider: 11/01/24 18:20 Source: patient Mode of arrival: ambulatory Limitations: no limitations History of Present Illness: 23-year-old female who states she has be en having abdominal pain over the last 3 days she states that pain is been cramping pain in her upper abdomen some radiation to her back. She states she is also had some vomiting 1 episode of diarrhea she denies any fevers denies any worsening improving factors. No history of abdominal surgeries besides Associated Symptoms: Reports nausea and vomiting; Denies chills, diarrhea, dysuria and fever(s) Related Data Previous Rx's Medication Instructions Recorded albuterol sulfate 90 mcg/actuation 2 puff inhalation Q6H PRN 07/07/24 aerosol inhaler (Ventolin HFA) shortness of breath or wheezing #8.5 grams prednisone 20 mg tablet 20 mg PO BID 5 days #10 tabs 07/07/24 cyclobenzaprine 10 mg tablet 10 mg PO Q8H PRN muscle spasm #20 08/12/24 tabs diclofenac sodium 50 mg 50 mg PO BID PRN pain #14 tabs 08/12/24 tablet,delayed release hydrocodone 5 mg-acetaminophen 325 1 tab PO Q8H PRN pain #14 tabs 08/12/24 mg tablet cephalexin 500 mg capsule 500 mg PO TID 7 days #21 caps 11/01/24 ondansetron 4 mg disintegrating 4 mg PO Q6H PRN nausea and 11/01/24 tablet vomiting #14 tabs Allergies Allergy/AdvReac Type Severity Reaction Status Date / Time bee venom protein (honey bee) Allergy ALGY-Swell Verified 11/01/24 15:55 Lip/Tongue/Throat codeine Allergy ALGY-Swell Verified 11/01/24 15:55 Lip/Tongue/Throat Review of Systems 2 Const: Denies: fever(s), chills, body aches or change in appetite ENMT: Denies: throat pain or dental pain Card: Denies: chest pain Resp: Denies: dyspnea GI: Reports: abdominal pain, nausea and vomiting; Denies: diarrhea : Denies: dysuria Musc: Denies: neck pain or back pain Skin/Breast: Denies: rash Neuro: Denies: headache(s) PFSH ED 2 PFSH: Medical History Anxiety and depression Scoliosis History of anorexia nervosa Lordosis History of hallucinations as a child, does not have them much anymore PTSD (post-traumatic stress disorder) Asthma Surgical History Status post section No pertinent past surgical history Family History Grandfather Thyroid disease Maternal CAD (coronary artery disease) Maternal Cancer Maternal--skin cancer Clotting disorder Maternal Hyperlipidemia Maternal Stroke Maternal Mother Seizures Hypertension Diabetes Cancer skin cancer Clotting disorder Grandfather Hypertension Diabetes Maternal Grandmother Hypertension Maternal Family/Other Stroke Maternal aunts Denies family history of Chronic kidney disease (CKD) Bleeding disorder Social History Smoking and tobacco/nicotine status: current every day tobacco/nicotine user cigarettes Alcohol intake: never Substance/Drug Use: current Other substance/drug use details: smokes 6-7 times daily Physical Exam 2 Const: COMMON NORMALS: patient oriented x3 HENMT: COMMON NORMALS: normocephalic and atraumatic HEAD & SCALP: n ormocephalic and atraumatic Eye: COMMON NORMALS: Equal, round and reactive pupils present and EOMs intact bilaterally PUPIL: Yes Equal, round and reactive pupils present Neck/C-Spine: COMMON NORMALS: full ROM and supple Chest: COMMONS NORMALS: normal inspection of the chest Resp: COMMON NORMALS: normal respiratory effort, No retractions, No use of accessory muscles and clear to auscultation bilaterally AUSCULTATION: clear to auscultation bilaterally Cardio: COMMON NORMALS: regular rate, regular rhythm and No murmurs present (Cardio) RATE: regular rate RHYTHM: regular rhythm GI: COMMON NORMALS: Normal to inspection, nondistended, normoactive bowel sounds present, Soft to palpation, non-tender and no masses PALPATION: Yes Soft to palpation Extremity: COMMON NORMALS: normal to inspection and full ROM Neuro: COMMON NORMALS: patient oriented x3, moves all extremities and no focal motor deficits Psych: COMMON NORMALS: mental status grossly normal, Normal thought process present and cooperative THOUGHT PROCESS: Normal thought process present Skin: COMMON NORMALS: no rashes or lesions noted and no wounds GENERAL SKIN EXAM: no rashes or lesions noted Course 2 Vital Signs: Vital signs: Vital Signs Temperature 98.5 F 11/01/24 15:50 Pulse Rate 82 11/01/24 19:11 Respiratory Rate 16 11/01/24 18:30 Blood Pressure 133/75 11/01/24 19:11 Pulse Oximetry 97 11/01/24 19:11 Oxygen Delivery Me thod Room Air 11/01/24 19:11 MDM - Abdominal Pain Medical Decision Making Patient presents with abdominal pain does have a UTI blood works otherwise normal her abdominal exam here is benign no signs of acute surgical abdomen we will place her on antibiotics along with Zofran she is to follow-up with PCP if she has worsening pain she is to return she understands agrees to plan. Medical Records I reviewed the patient's medical records. Lab Data I reviewed the patient's lab results. 11/01/24 16:13 11/01/24 16:13 Labs/Radiology: Laboratory Results WBC 7.02 10^3/uL (3.29-11.43) 11/01/24 16:13 RBC 4.54 10^6/uL (3.85-5.65) 11/01/24 16:13 Hgb 12.70 g/dL (11.27-16.99) 11/01/24 16:13 Hct 38.1 % (36-47) 11/01/24 16:13 MCV 83.9 fl (85-98) L 11/01/24 16:13 MCH 28.0 pg (27-33) 11/01/24 16:13 MCHC 33.3 g/dL (30-55) 11/01/24 16:13 RDW 13.4 % (12.1-15.1) 11/01/24 16:13 Plt Count 277 10^3/cmm (157-399) 11/01/24 16:13 MPV 9.6 fL (7.4-10.4) 11/01/24 16:13 Neut % (Auto) 77.1 % 11/01/24 16:13 Lymph % (Auto) 15.1 % 11/01/24 16:13 Hartley % (Auto) 4.6 % 11/01/24 16:13 Eos % (Auto) 3.0 % 11/01/24 16:13 Baso % (Auto) 0.1 % 11/01/24 16:13 Neut # (Auto) 5.41 10^3/uL (1.8-7.7) 11/01/24 16:13 Lymph # (Auto) 1.1 10^3/uL (0.8-4.8) 11/01/24 16:13 Hartley # (Auto) 0.3 10^3/uL (0.2-0.9) 11/01/24 16:13 Eos # (Auto) 0.2 10^3/uL (0.0-0.8) 11/01/24 16:13 Baso # (Auto) 0.0 10^3/uL (0.0-0.1) 11/01/24 16:13 Nucleated RBC % (auto) 0 % 11/01/24 16:13 Nucleated RBCs # 0.0 /100WBC 11/01/24 16:13 Sodium 138 mmol/L (136-145) 11/01/24 16:13 Potassium 3.7 mmol/L (3.5-5.1) 11/01/24 16:13 Chloride 104 mmol/L (98-107) 11/01/24 16:13 Carbon Dioxide 23 mmol/L (22-29) 11/01/24 16:13 Anion Gap 14.7 (5-19) 11/01/24 16:13 BUN 9 mg/dL (6-20) 11/01/24 16:13 Creatinine 0.6 mg/dL (0.5-0.9) 11/01/24 16:13 GFR Calculation 122.8 mL/min (90-130) 11/01/24 16:13 Glucose 87 mg/dL (65-115) 11/01/24 16:13 Calculated Osmolality 284 mOsm/kg (285-295) L 11/01/24 16:13 Calcium 9.1 mg/dL (8.5-10.5) 11/01/24 16:13 Total Bilirubin 0.8 mg/dL (0.15-1.2) 11/01/24 16:13 AST 18 U/L (0-32) 11/01/24 16:13 ALT 19 U/L (0-33) 11/01/24 16:13 Alkaline Phosphatase 102 U/L (35-105) 11/01/24 16:13 Total Protein 6.8 g/dL (6.6-8.7) 11/01/24 16:13 Albumin 4.2 g/dL (3.5-5.2) 11/01/24 16:13 Globulin 2.6 g/dL (1.3-4.6) 11/01/24 16:13 Lipase 10 U/L (13-60) L 11/01/24 16:13 HCG, Qual Negative (Negative) 11/01/24 16:13 Urine Color Yellow (Yellow) 11/01/24 16:15 Urine Appearance Clear (CLEAR) 11/01/24 16:15 Urine pH 6.5 (5-7) 11/01/24 16:15 Ur Specific Converse 1.025 (1.005-1.030) 11/01/24 16:15 Urine Protein Negative (Negative) 11/01/24 16:15 Urine Glucose (UA) Negative (Normal) 11/01/24 16:15 Urine Ketones Trace (Negative) 11/01/24 16:15 Urine Blood Non-haemolysed trace (Negative) 11/01/24 16:15 Urine Nitrate Positive (Negative) A 11/01/24 16:15 Urine Bilirubin Negative (Negative) 11/01/24 16:15 Urine Urobilinogen 1.0 mg/dL (Negative) 11/01/24 16:15 Ur Leukocyte Esterase Negative (Negative) 11/01/24 16:15 Urine RBC 6-10 /hpf (0-2) 11/01/24 16:15 Urine WBC 0-5 /hpf (0-5) 11/01/24 16:15 Ur Squamous Epith Cells 6-10 /hpf (0-5) 11/01/24 16:15 Amorphous Sediment Not Reportable 11/01/24 16:15 Urine Bacteria 4+ /hpf (NONE) H 11/01/24 16:15 Hyaline Casts 1.65 /lpf 11/01/24 16:15 No radiology studies performed this visit Discharge Plan Discharge Patient Disposition: Home Clinical Impression: Acute cystitis Condition: Stable Prescriptions: New cephalexin 500 mg capsule 500 mg PO TID 7 Days Qty: 21 0RF ondansetron 4 mg tablet,disintegrating 4 mg PO Q6H PRN (Reason: nausea and vomiting) Qty: 14 0RF No Action prednisone 20 mg tablet 20 mg PO BID 5 Days Qty: 10 0RF albuterol sulfate [Ventolin HFA] 90 mcg/actuation HFA aerosol inhaler 2 puff inhalation Q6H PRN (Reason: shortness of breath or wheezing) Qty: 8.5 0RF cyclobenzaprine 10 mg tablet 10 mg PO Q8H PRN (Reason: muscle spasm) Qty: 20 0RF hydrocodone-acetaminophen 5-325 mg tablet 1 tab PO Q8H PRN (Reason: pain) Qty: 14 0RF Rx Instructions: Take 1/2 to 1 tab every 8 hours as needed for pain diclofenac sodium 50 mg tablet,delayed release (DR/EC) 50 mg PO BID PRN (Reason: pain) Qty: 14 0RF Discharge Orders: Discharge ED (Routine); Ordered 11/01/24 Ordered By: Chadwick Arora Referrals: Moreno Perry MD [Primary Care Provider] - Discharge Diet: Advance as tolerated Discharge Activity: Resume usual activity Patient Instructions: Urinary Tract Infection in Women (ED) Coding Level of Care Code ED Technical Solution Architect for Tejas Marquez
[2024-11-01 18:44] LABS: Bilirubin Urine Negative (Negative); Blood Urine Non-haemolysed trace (Negative); Glucose Urine UA Negative (Normal); Ketones Urine Trace (Negative); Leukocyte Esterase Urine Negative (Negative); Nitrate Urine Positive (Negative); Protein Urine Negative (Negative); Specific Gravity, Urine 1.025 (1.005-1.030); Urine Appearance Clear (CLEAR); Urine Color Yellow (Yellow); pH Urine 6.5 (5-7)
[2024-11-01 18:50] LABS: Add Urine Microscopic? YES; Bacteria Urine 4+ /hpf; Hyaline Casts Urine 1.65 /lpf; WBC Urine 0-5 /hpf (0-5)
[2024-11-01] MEDS: ondansetron 2 mg/ML SDV 2 mL 4 MG IVP (19:06)
[2024-11-01 19:11] VITALS: BP 133/75; PULSE 82; O2SAT 97
[2024-11-01] MEDS: iohexol 350 mg/mL 500 mL Btl (per mL) IV (19:25)
[2024-11-01 19:30] VITALS: BP 127/67; PULSE 83; O2SAT 98
[2024-11-01] MEDS: cefTRIAXone 1,000 MG in water for injection-sterile 2.1 ML 1 MG IM (20:32)
[2024-11-01 20:42] VITALS: BP 128/66; PULSE 76; O2SAT 97
== END 2024-11-01 20:43 | disposition home or self-care (01) ==
PROVIDERS: Emergency Provider Emergency Medicine; PCP Family Medicine Adult Medicine
DX: N30.00 Acute cystitis without hematuria (principal); F17.210 Nicotine dependence, cigarettes, uncomplicated
CPT/HCPCS: 36415; 74177; 80053; 81001; 83690; 84703; 85025; 96372; 96374; 99285; J0696; J2405

== ENCOUNTER 2025-06-19 15:45 | Emergency (ER) | payer OTHER, SELFPAY ==
--- OUTSIDE RECORDS SUMMARY | 2021-11-08 19:00 | XMS_ITS | Continuity of Care Document ---
Author Organization [facility] Address [id number] [address] Phone Care Team Providers Care Farmworker [employer] Name Role Phone Vesta Iverson MD Unavailable Unavailable Procedures Procedure Date SUBSEQUENT HOSPITAL CARE SUBSEQUENT HOSPITAL CARE Advance Directives Directive Yes / No Effective Date File Name No Information Encounters Encounter Description Practice Location Reason(s) For Visit Diagnoses Date Provider Providers Copied on Encounter SUBSEQUENT HOSPITAL CARE [facility], [id number], [id number], [place] tel:[phone] [facility] No Information [facility] Lemons. [address] [place], [address], [place]. tel:[phone] Referring Provider: Vesta Iverson [address] [place] [address], [address]. tel:[phone] SUBSEQUENT HOSPITAL CARE [facility], [id number], [id number], [place] tel:[phone] [facility] No Information Zayra Lemons. [address] [place], [address], [place]. tel:[phone] Referring Provider: Vesta Iverson [address] [place], [address]. tel:[phone] Family History Family Member Type Diagnosis Age At Onset No Information Payers Payer name Insurance type Covered green party ID Authoriza tion(s) [facility] [id number] Social History Type Description Quantity Date Captured Comments Sex Female Smoking Status No Information Chief Complaint And Reason For Visit No Information Reason For Referral Reason For Referral No Information History Of Present Illness Encounter Date Complaint History Of Prese nt Illness No Information Functional Status Date Functional Assessmen t No Information Instructions Date Instruction Additional Infor mation No Information Assessments Type Assessment Date No Information Patient Care Teams Name Effective Dates (start - stop) Status Members No Information
--- OUTSIDE RECORDS SUMMARY | 2025-06-01 06:00 | XMS_ITS ---
Author Organization [facility] Address [address] [place] [address] Care Team Providers Care Family Preservation Caseworker Name Role Phone FrannyTuFrance Unavailable [phone] REASON FOR VISIT 4 WKS Encounters Encounter Location Date Provider Diagnosis [address] [place] [address] 06/01/2025 France Blanton Plan Of Treatment Next Appt Details Provider Name:France Canas ers, 06/29/2025 11:00:00 AM, [address] [place] [address] [address], [place], [address], Provider Name:France gamino, 07/12/2025 01:00:00 PM, [address] [place] [address] [address], [place], [address], Provider Name:France gamino, 07/27/2025 11:00:00 AM, [address] [place] [address] [address], [place], [address], Provider Name:France gamino, 08/17/2025 11:00:00 AM, [address] [place] [address] [address], [place], [address], Provider Name:France gamino, 09/14/2025 11:00:00 AM, [address] [place] [address] [address], [place], [address], Progress Notes * CURTIS MONCADA: 0 (24 yo F)Acc No.[id number]:06/01/2025 Patient: CHRISTIANO BRINK Provider: Vanesa Blanton MD :2000 A ge:24 Y S ex:Female Date:06/01/2025 Address:[address] [place], [place] [id number] Subjective: * Chief Complaints: * 4 WKS * 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
--- OUTSIDE RECORDS SUMMARY | 2025-06-19 15:49 | XMS_ITS | Clinical Summary ---
Author Organization [facility] Address [address] [place] [address] Care Team Providers Care Dredge Mate Name Role Phone Unavailable Primary Care Provider Unavailabl e Encounters Date Type Department Care Team Description 05/10/2025 External Device Data [facility]STRACTION Provider, Abstract 05/10/2025 External Device Data [facility]STRACTION Provider, Abstract 05/10/2025 External Device Data [facility]STRACTION Provider, Abstract 05/04/2025 Telephone [facility] [address] [place] [address] Trina Rome MD Appointment Notification from Last 3 Months Immunizations Immunization Administration Dates Next Due (VARIVAX)(12 MOS UP)VARICELL A VIRUS VACCINE (PF) 0.5 ML, SUB CUT 08/23/2002 Social History Tobacco Use Types Packs/Day Years Used Date Smoking Tobacco: Never Assessed Comments Unknown Sex and Gender Information Value Date Recorded Sex Assigned at Not on file 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
--- OUTSIDE RECORDS SUMMARY | 2025-06-19 15:49 | XMS_ITS | Patient Health Record ---
Author Organization [facility] Address [address] [place] [address] Care Team Providers Care Earth Mover Name Role Phone France Blanton Unavailable [phone] Allergies Allergen (clinical drug ingredient) Drug/Non Drug Allergy documented on EMR Reaction Allergy Type Onset Date Status Information temporarily unavailable Codeine hives Drug Allergy Active Results Component Value Reference Range Flag Notes UA Without Micro-Auto, [place] - [id number] Reviewed date:06/01/2025 02:18:55 PM Interpretation: Performing Lab: Notes/Report: Color yellow Clarity clear Glucose - Bili - Ketones - Sp Ismay 1.025 Blood 1+ pH 6.0 Protein - Urobili 0.2 Nitrites - Leukocytes - UA Without [place], [place] - [address] Reviewed date:05/05/2025 08:56:09 AM Interpretation: Performing Lab: Notes/Report: Color yellow Clarity clear Glucose - Bili - Ketones - Sp Ismay 1.010 Blood 1+ pH 6.0 Protein - Urobili 0.2 Nitrites - Leukocytes - ABORh 15010, 07011 Reviewed date:05/07/2025 12:28:53 PM Interpretation: Performing Lab: Notes/Report: Diagnosis Description: Encounter for supervision of normal , unspecified, first trimester ABO/Rh Interp A POS Unknown Antibody Screen 20297 Reviewed date:05/07/2025 12:27:54 PM Interpretation: Performing Lab: Notes/Report: Diagnosis Description: Encounter for supervision of normal , unspecified, first trimester ABSC Interp Negative Culture Urine 20193 Reviewed date:05/07/2025 12:28:11 PM Interpretation: Performing Lab: Notes/Report: Culture Urine CHRISTIANO Abbott Culture Urine t: Culture Urine Culture Urine Accessio [id number] Culture Urine n: Culture Urine Microbiology Culture Urine PROCEDURE: Culture Urine [O1] Culture Urine SOURCE: Urine BODY SITE: Culture Urine COLLECTED DATE/TIME: 05/05/2025 08:47 CDT RECEIVED DATE/TIME: 05/05/2025 17:54 CDT Culture Urine START DATE/TIME: 05/05/2025 17:55 CDT FREE TEXT SOURCE: Culture Urine FINAL REPORT Culture Urine Final Report [] Culture Urine Verified Date/Time: 05/07/2025 09:55 CDT Culture Urine <10,000 cfu/ml Mixed Superficial Corin Culture Urine Order Comments Culture Urine O1: Culture Urine (Culture Urine [id number]) Culture Urine Diagnosis Description: Encounter for supervision of normal , unspecified, first Culture Urine trimester Basic Metabolic Panel (BMP) 41074 Reviewed date:05/07/2025 12:28:02 PM Interpretation: Performing Lab: Notes/Report: Diagnosis Description: Encounter for supervision of normal , unspecified, first trimester Sodium 139 136-145 MMOL/L Potassium 4.2 3.5-5.1 MMOL/L Chloride 104 98-107 MMOL/L CO2 23.3 20.0-31.0 MMOL/L Glucose Serum 86 71-110 MG/DL Testing p erformed at [facility], [address] [place] [address] [place] [address]. CLIA ID#: [id number] BUN 7 7-21 MG/DL Creat .65 .51-1.17 MG/DL Use of this assay is not recommended for patients undergoing treatment with phenindione, due to the potential for falsely depressed results. D-mflwbo-h-benzoquino ne imine (NAPQI) is a metabolite of acetaminophen, NAPQI concentrations of apparoximately 10 mg/L correlation to toxic levels of acetaminophen demonstrates a greater than or equil to 10% change in results. NAPQI concentrations greater than this may lead to falsely depressed results for patient samples. GFR 125.0 NA Calculation pe rformed from GFR calculator provided by the [employer]. Glomerular Filtration rate(GRF) is the best overall index of kidney function. Normal GFR varies according to age,sex, body size, and declines with age. The National Kidney Foundation recommends using the CKD-EPI Creatinine Equation(2020) to estimate GFR. Anion Gap 16 5-15 HI BUN/Creat Ratio 10.8 12.0-20.0 % LOW Calcium 9.7 8.7-10.4 MG/DL Osmo Serum,Calculated 285 280-300 MOSM/KG Hemoglobin A1c 79607 Reviewed date:05/07/2025 12:29:18 PM Interpretation: Performing Lab: Notes/Report: Diagnosis Description: Prediabetes 14-AUG-2016 15:12:57<$> Diagnosis Description: Encounter for supervision of normal , unspecified, first trimester Hgb A1c 5.0 3.8-6.4 % Interpretation Of Hgb A1c: 4.5-6.2 % nondiabetics. >7.0 % diabetics. EAG 97 NA Estimated Aver age Glucose(E[place] [address] Reviewed date:05/07/2025 12:29:02 PM Interpretation: Performing Lab: Notes/Report: Diagnosis Description: Encounter for supervision of normal , unspecified, first trimester Hepatitis C AB Non-Reactive NA SYPHILIS TEST, QUAL (RPR) 86 592 Reviewed date:05/07/2025 12:27:40 PM Interpretation: Performing Lab: Notes/Report: Diagnosis Description: Encounter for supervision of normal , unspecified, first trimester Syphilis Screen Non-Reactive NA Testing performed via [employer] IM analyzer. This assay is a Chemiluminescent Microparticle Immunoassay for the detection of Treponemal antibodies. Reactive samples will be confirmed via RPR w/Reflex to Titer in accordance with CDC's recommended reverse sequence screening algorithm. Hepatitis Bs Antigen 90171 Reviewed date:05/07/2025 12:27:14 PM Interpretation: Performing Lab: Notes/Report: Diagnosis Description: Encounter for supervision of normal , unspecified, first trimester Hepatitis Bs AG Non-Reactive NA CBC w\o Diff 53587 Reviewed date:05/10/2025 09:02:54 AM Interpretation: Performing Lab: Notes/Report: Diagnosis Description: Encounter for supervision of normal , unspecified, first trimester WBC 5.5 4.5-11.0 X10'3 RBC 4.11 4.00-5.20 X10'6 Hgb 11.4 12.0-16.0 G/DL LOW Hct 34.9 36.0-46.0 % LOW MCV 84.9 80.0-100.0 FL MCH 27.7 27.0-31.0 PG MCHC 32.7 31.0-37.0 G/DL Platelet 265 150-400 X10'3 RDW-SD 41.6 35.0-49.0 FL RDW-CV 13.4 12.2-15.6 % MPV 10.0 9.2-12.0 FL Varicella Zoster IgG 66290 Reviewed date:05/07/2025 12:27:36 PM Interpretation: Performing Lab: Notes/Report: Diagnosis Description: Encounter for supervision of normal , unspecified, first trimester Varicella Zoster IgG 1.3 NA <= 0.9 Negative >= 1.1 Positive The best evidence of current infection is a significant change on two appropriately timed specimen,where both tests are done in the same laboratory at the same time. 0.9-1.1 Equivocal Rubella IgG 47178 Reviewed date:05/07/2025 12:28:57 PM Interpretation: Performing Lab: Notes/Report: Diagnosis Description: Encounter for supervision of normal , unspecified, first trimester Rubella IgG Reactive NA to rubella virus. equivocal. Obtain a new specimen and test using the [employer] IM Rubella assay. Equivocal: Samples with a value of ? 5.0 IU/mL and < 10.0 IU/mL are considered antibodies to Rubella virus. Nonreactive: Samples with a value of < 5.0 IU/mL are considered negative for IgG Reactive: Samples with a value of ? 10.0 IU/mL are considered positive for IgG antibodies Drug Screen Multi Panel 8030 5 Reviewed date:05/07/2025 12:27:49 PM Interpretation: Performing Lab: Notes/Report: Diagnosis Description: Encounter for supervision of normal , unspecified, first trimester Marijuana-THC Positive Specimen Type: Urine Speciman analysis was performed without chain of custody handling. Testing performed by colorimetric method. Confirmation is pending. These resuts should be used for medical purposes only and not for any legal or employment evaluative purposes. In very rare instances, and extremely high drug concentration may field a negative result for any qualitative drug screening assay. The potential for false negative results in these rare instances exsists for all drug screening methods. Cutoff value: 50 ng/mL Cocaine-SEBASTIAN Negative Specimen Type: Urine Specimen analysis was performed without chain of custody handling. Testing performed by colorimetric method. Confirmation is pending. These resuts should be used for medical purposes only and not for any legal or employment evaluative purposes. In very rare instances, and extremely high drug concentration may field a negative result for any qualitative drug screening assay. The potential for false negative results in these rare instances exsists for all drug screening methods. Cutoff value: 300 ng/mL Opiates-MOP Negative Speciman analysis was performed without chain of custody handling. Testing performed by colorimetric method. Confirmation is pending. These resuts should be used for medical purposes only and not for any legal or employment evaluative purposes. In very rare instances, and extremely high drug concentration may field a negative result for any qualitative drug screening assay. The potential for false negative results in these rare instances exsists for all drug screening methods. Cutoff value: 2000 ng/mL Specimen Type: Urine Amphetamine-AMP Negative Speciman analysis was performed without chain of custody handling. Testing performed by colorimetric method. Confirmation is pending. These resuts should be used for medical purposes only and not for any legal or employment evaluative purposes. In very rare instances, and extremely high drug concentration may field a negative result for any qualitative drug screening assay. The potential for false negative results in these rare instances exsists for all drug screening methods. Cutoff value: 1000 ng/mL Specimen Type: Urine Methamphetamines-MET Negative Speciman analysis was performed without chain of custody handling. Testing performed by colorimetric method. Confirmation is pending. These resuts should be used for medical purposes only and not for any legal or employment evaluative purposes. In very rare instances, and extremely high drug concentration may field a negative result for any qualitative drug screening assay. The potential for false negative results in these rare instances exsists for all drug screening methods. Specimen Type: Urine Cutoff value: 1000 ng/mL Phencyclidine-PCP Negative Speciman analysis was performed without chain of custody handling. Testing performed by colorimetric method. Confirmation is pending. These resuts should be used for medical purposes only and not for any legal or employment evaluative purposes. In very rare instances, and extremely high drug concentration may field a negative result for any qualitative drug screening assay. The potential for false negative results in these rare instances exsists for all drug screening methods. Cutoff value: 25 ng/mL Specimen Type: Urine Ecstasy-MDMA Negative Specimen Type: Urine Speciman analysis was performed without chain of custody handling. Testing performed by colorimetric method. Confirmation is pending. These resuts should be used for medical purposes only and not for any legal or employment evaluative purposes. In very rare instances, and extremely high drug concentration may field a negative result for any qualitative drug screening assay. The potential for false negative results in these rare instances exsists for all drug screening methods. Cutoff value: 500 ng/mL Barbiturates-BAR NEG. Speciman analysis was performed without chain of custody handling. Testing performed by colorimetric method. Confirmation is pending. These resuts should be used for medical purposes only and not for any legal or employment evaluative purposes. In very rare instances, and extremely high drug concentration may field a negative result for any qualitative drug screening assay. The potential for false negative results in these rare instances exsists for all drug screening methods. Specimen Type: Urine Cutoff value: 300 ng/mL Benzodiazepines-BZO Negative Speciman analysis was performed without chain of custody handling. Testing performed by colorimetric method. Confirmation is pending. These resuts should be used for medical purposes only and not for any legal or employment evaluative purposes. In very rare instances, and extremely high drug concentration may field a negative result for any qualitative drug screening assay. The potential for false negative results in these rare instances exsists for all drug screening methods. Cutoff value: 300 ng/mL Specimen Type: Urine Methadone-MTD Negative Specimen Type: Urine Cutoff value: 300 ng/mL Speciman analysis was performed without chain of custody handling. Testing performed by colorimetric method. Confirmation is pending. These resuts should be used for medical purposes only and not for any legal or employment evaluative purposes. In very rare instances, and extremely high drug concentration may field a negative result for any qualitative drug screening assay. The potential for false negative results in these rare instances exsists for all drug screening methods. Oxycodone-OXY Negative Cutoff value: 100 ng/mL Speciman analysis was performed without chain of custody handling. Testing performed by colorimetric method. Confirmation is pending. These resuts should be used for medical purposes only and not for any legal or employment evaluative purposes. In very rare instances, and extremely high drug concentration may field a negative result for any qualitative drug screening assay. The potential for false negative results in these rare instances exsists for all drug screening methods. Specimen Type: Urine Buprenorphine-BUP Negative Specimen Type: Urine Analysis was performed without chain of custody handling. Testing performed by colorimetric method. Confirmation is pending. These resuts should be used for medical purposes only and not for any legal or employment evaluative purposes. In very rare instances, and extremely high drug concentration may field a negative result for any qualitative drug screening assay. The potential for false negative results in these rare instances exsists for all drug screening methods. Cutoff value: 10 ng/mL Miscellaneous Test Reviewed date:05/07/2025 10:49:08 AM Interpretation: Performing Lab: Notes/Report: Misc Sent to Ref Lab Name of Misc Test Mycoplasma genitalium, Mycoplasma hominis, Ureaplasma species NA OB Early Gest-82748 Reviewed date:05/01/2025 04:16:00 PM Interpretation: Performing Lab: Notes/Report: See Below For Report OB Early Gest Read See Below For Report BB ABORH-[id number] Reviewed date:05/07/2025 12:29:22 PM Interpretation: Performing Lab: Notes/Report: BB ABORh Interp A POS Unknown HIV 1/2 Ag/Ab Screen--33061, 99734 Reviewed date:05/07/2025 12:27:19 PM Interpretation: Performing Lab: Notes/Report: Diagnosis Description: Encounter for supervision of normal , unspecified, first trimester HIV 1/2 Ag/Ab Combo Non-Reactive NA Scr eening test only. Reactive samples will be sent out for confirmation. Joe--NO CPT Reviewed date:05/07/2025 10:49:08 AM Interpretation: Performing Lab: Notes/Report: Joe Sent to Ref Lab THC Confirmation--[id number] Reviewed date:05/17/2025 05:34:41 PM Interpretation: Performing Lab: Notes/Report: Marijuana Confirmation 244 NA Specimen analysis was performed without chain of custody handling. These results should be used for medical purposes only and not for any legal or employment evaluative purposes. In very rare instances, an extremely high drug concentration may field a negative result for any qualitative drug-screening assay. The potential for false negative results in these rare instances exist for all drug-screening methods. Interventional Pain Management Test was performed at: [address] [place] [address], [place] [address] [facility] ([facility] [facility]) Reviewed date:05/21/2025 12:34:03 PM Interpretation: Performing Lab: Notes/Report: Report Summary Positive A Negative for 12 out of 14 diseases. 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 If this individual's partner is a carrier for Zbowq-Zngxg-Wrxou Syndrome, their chance to have a child with this condition is 1 in 4 (25%). Carrier screening for this individual's partner is suggested. CARRIER for Bsjuo-Ebmzh-Wnfea Syndrome Spinal Muscular Atrophy Positive A Positive for one copy of the SMN1 gene. Negative for the g.79474G>G variant; this finding does not change or modify this individual's carrier status. If this individual's partner is a carrier for Spinal Muscular Atrophy, their chance to have a child with this condition is 1 in 4 (25%). Carrier screening for this individual's partner is suggested. CARRIER for Spinal Muscular Atrophy Alpha-Thalassemia Negative N Beta-Hemoglobinopath ies Negative N Leisa Disease Negative N Cystic Fibrosis Negative N Duchenne/Altamirano Muscular Dystrophy (X-linked) Negative N Familial Dysautonomia Negative N Fragile X Syndrome (X-linked) Negative N NEGATIVE Fragile X Syndrome (X-linked) results 30 and 27 CGG repeats were detected in the FMR1 genes. Galactosemia Negative N Gaucher Disease Negative N Medium Chain Acyl-CoA Dehydrogenase Deficiency Negative N Polycystic Kidney Disease, Autosomal Recessive Negative N Darian-Sachs Disease Negative N Panel Notes See Notes Report Note See Notes Footnotes See Notes CLIA ID #[id number] Test performed by [facility]. : [address] [place] [address] CLIA Clam Dredger: Elijah Kline, Ph.D., [facility] Please see the attached PDF for information regarding Conditions, Methodology, Disclaimers, and further information. [facility] Reviewed date:05/16/2025 05:32:51 PM Interpretation: Performing Lab: Notes/Report: Report Summary LOW RISK N LOW RISK Report Note See Notes N Trisomy 13 Age-Based Risk Text 10/25,930 (0.01%) N Trisomy 13 Risk Score Text <110,000 (<0.01%) N Trisomy 13 Result Text Low Risk N Trisomy 18 Age-Based Risk Text 10/21,200 (0.05%) N Trisomy 18 Risk Score Text <10/29,000 (<0.01%) N Trisomy 18 Result Text Low Risk N Trisomy 21 Age-Based Risk Text 946 (0.11%) N Trisomy 21 Risk Score Text <10/29,000 (<0.01%) N Trisomy 21 Result Text Low Risk N Monosomy X Age-Based Risk Text 255 (0.39%) N Monosomy X Risk Score Text <10/29,000 (<0.01%) N Monosomy X Result Text Low Risk N 22q11.2 Deletion Syndrome Population-Based Risk Text N 22q11.2 Deletion Syndrome Risk Score Text N 22q11.2 Deletion Syndrome Result Text Low Risk N Prader-Willi Syndrome Population-Based Risk Text N Prader-Willi Syndrome Risk Score Text N Prader-Willi Syndrome Result Text Low Risk N Angelman Syndrome Population-Based Risk Text Angelman Syndrome Risk Score Text Angelman Syndrome Result Text Risk Unchanged Unable to furthe r refine risk. Cri-du-chat Syndrome Population-Based Risk Text N Cri-du-chat Syndrome Risk Score Text N Cri-du-chat Syndrome Result Text Low Risk N 1p36 Deletion Syndrome Population-Based Risk Text N 1p36 Deletion Syndrome Risk Score Text N 1p36 Deletion Syndrome Result Text Low Risk N Triploidy Result Text Low Risk N Gender of Fetus Female Fraction 3.9% Footnotes See Notes Please refer to the attached PDF report Testing Methodology This test has been validated on women with a morales, twin, vanishing twin, or egg donor of at least nine weeks gestation. A result will not be available for higher order multiples and multiple gestation pregnancies with an egg donor or surrogate, or bone marrow transplant recipients. Complete test panel is not available for twin gestations and pregnancies achieved with an egg donor or surrogate. For twin pregnancies with a fraction value below the threshold for analysis, a sum of the fractions for both twins will be reported. As this assay is a screening test and not diagnostic, false positives and false negatives can occur. High risk test results need diagnostic confirmation by alternative testing methods. Low risk results do not fully exclude the diagnosis of any of the syndromes nor do they exclude the possibility of other chromosomal abnormalities or defects, which are not a part of this test. Potential sources of inaccurate results include, but are not limited to, mosaicism, low fraction, limitations of current diagnostic techniques, or misidentification of samples. This test will not identify all deletions associated with each microdeletion syndrome. This test has been validated for deletions ?0.5 Mb within the 22q11.2 A-D region. This test has been validated on full region deletions only for 1p36 deletion syndrome, Cri-du-chat syndrome, Prader Willi syndrome and Angelman syndrome and may be unable to detect smaller deletions. Microdeletion risk score may be dependent upon fraction, as deletions on the maternally inherited copy are difficult to identify at lower fractions. Test results should always be interpreted by a clinician in the context of clinical and familial data with the availability of genetic counseling when appropriate. This test was performed by [facility]. [address], [place] [address] (CLIA ID [id number]). The performance characteristics of this test were developed by [facility]. This test has not been cleared or approved by the U.S. Food and Drug Administration (FDA). This laboratory is regulated under CLIA as qualified to perform high-complexity testing. 2024 [facility]. All Rights Reserved. [place] Clam Dredger: Elijah Kline, Ph.D., [facility] Reviewed By: Immanuel Hughes M.D., Ph.D., [facility], Senior Director Underwriter Sales DNA isolated from maternal blood, which contains placental DNA, is amplified at specific loci using a targeted PCR assay and is sequenced using a high-throughput sequencer. fraction is determined using a proprietary algorithm incorporating data from single nucleotide polymorphism-based (SNP-based) next-generation sequencing [Barney Dale et al. Obstet Gynecol. 2014 May;124(2 Pt 1):210-8]. If there is sufficient fraction, sequencing data is analyzed using a proprietary SNP-based algorithm to determine the copy number for chromosomes 13, 18, 21, X and Y. If ordered, specific microdeletions will be evaluated using similar methodology [Vasile GARCIA et al. Am J Obstet Gynecol. 2015 Mar;212(3):332.e1-9]. If the fraction is insufficient, an additional algorithm to determine whether there is an increased risk for triploidy, trisomy 18, and trisomy 13 may be utilized, known as fraction based risk assessment (FFBR) [Alessio et al. Ultrasound Obstet Gynecol 2019; 53:73-79]. If ordered on a vanishing twin , a proprietary analysis will be performed to differentiate between the viable/living fetus and the vanished fetus to allow for risk assessment of copy number of chromosomes 13,18, 21, X, Y, and specific microdeletions in the viable/living twin using the above described SNP-based algorithm. If ordered, and patient is RHD negative by genotype, RHD status will be evaluated using a proprietary algorithm if fraction is sufficient [Shaggy Nielsen et al. Obstet Gynecol 2023;145:1?7]. However, some samples will not produce a result due to failure to meet the necessary quality thresholds. Disclaimers IF THE ORDERING PROVIDER HAS QUESTIONS OR WISHES TO DISCUSS THE RESULTS, PLEASE CONTACT US AT [phone] #3. Ask for the NIPT genetic counselor certified personal trainer. Leukorrhea - [id number], 73859, [phone], [id number], [id number] Reviewed date:05/07/2025 10:49:08 AM Interpretation: Performing Lab: Notes/Report: Chlamydia Sent to Ref Lab,result in clinical notes Gonorrhea Sent to Ref Lab,result in clinical notes Trichomonas Sent to Ref Lab Reason For Referral No Information Medications Medication SIG (Take, Route, Frequency, Duration) Notes Start Date End Date Status Omeprazole Active Active Social History Tobacco Use: Social History Observation Description Date Details (start date - stop date) Former Smoker NA - NA Social History Tobacco Use: Social Info Question Answer Notes Tobacco Control (Standard) Tobacco use: Former smoker How long has it been since you last smoked? 1-3 months Additional Details Category Social Info Options Details Drugs/Alcohol: Do you smoke marijuana? Ad mits Do you drink alcohol? 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 Problems Problem Type SNOMED Code ICD Code Onset Dates Problem Status W/U Status Risk Notes Problem Information temporarily unavailable Encounter for supervision of normal , unspecified, first trimester (Z34.91) Active confirm Problem Information temporarily unavailable Obesity complicating , second trimester (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.212) Active confirmed Problem Information temporarily unavailable Prediabetes (R73.03) Active confirmed Problem Information temporarily unavailable Second trimester (Z34.92) Active confirmed Problem Information temporarily unavailable Adult BMI 40.0-44.9 kg/sq m (Z68.41) Active confirmed Vital Signs Heart Rate 77 /min 06/01/2025 Respiratory Rate 18 /min 06/01/2025 Height-cm 167.64 cm 06/01/2025 Oximetry 99 % 06/01/2025 Blood pressure diastolic 68 mm Hg 06/01/2025 Weight-kg 117.1 kg 06/01/2025 Height 66 in 06/01/2025 Blood pressure systolic 132 mm Hg 06/01/2025 Weight 258.16 lbs 06/01/2025 BMI 41.668 kg/m2 06/01/2025 Encounters Encounter Location Date Provider Diagnosis [address] [place] [address] 04/29/2025 France Blanton 10 weeks gestation of Z3A.10 and Encounter for related examination in first trimester Z34.[address] [place] [address] 05/05/2025 France Blanton Encounter for supervision of normal in first trimester, unspecified Z34.91 ; Prediabetes R73.03 ; History of Z98.891 ; Marijuana use F12.90 and Adult BMI 40.0-44.9 kg/sq m Z68.[address] [place] [address] 06/01/2025 France Blanton High risk , antepartum O09.90 ; Obesity complicating , second trimester O99.212 ; Adult BMI 40.0-44.9 kg/sq m Z68.41 and Second trimester Z34.[address] [place] [address] 04/11/2025 France Blanton [address] [place] [address] 05/18/2025 France Blanton [address] [place] [address] 06/09/2025 France Blanton [address] [place] [address] 06/09/2025 France Blanton [address] [place] [address] 06/09/2025 France Blanton Assessments Encounter Date Diagnosis (ICD Code) Assessment Notes Treatment Notes Treatment Clinical Notes Section Notes 04/29/2025 10 weeks gestation of (ICD-10 - Z3A.10) 04/29/2025 Encounter for related examination in first trimester (ICD-10 - Z34.91) 05/05/2025 Encounter for supervision of normal in first trimester, unspecified (ICD-10 - Z34.91) NOB:Send NOB labs, screening pap, Needs 18-22wk sono Discussed appointment and lab schedule. Discussed PNS, accuracy of results, latoya screen, desires. Discussed US schedule, 20-24wks. Discussed weight gain goals this and healthy diet. Discussed how BMI >30i ncreases risk of malformations, stillbirth, LGA infants which increases riskof dystocia which can lead to maternal injury and injury and .Discussed increased risks of Blood clots, GDM and PreE which increases risks of PTB, and increases risks of prolonged labor which increases risks of CD, infection, and hemorrhage. Discussed starting ASAat 12-16wks. Discussed activity, not disabled. All questions answered , Weeks 10 to 14 of Your : Care Instructions material was published 05/05/2025 Prediabetes (ICD-10 - R73.03) send labs 06/01/2025 High risk , antepartum (ICD-10 - O09.90) 06/01/2025 Obesity complicating , second trimester (ICD-10 - O99.212) 06/01/2025 Adult BMI 40.0-44.9 kg/sq m (ICD-10 - Z68.41) 05/05/2025 History of (ICD-10 - Z98.891) TOLACcounseling done. Pt counseled on increased risk of uterinerupture is 02/1000. Discussed that if this were to happen there is an increasedrisk of hemorrhage needing transfusion, increased risk of hysterectomy, andincreased risk of morbidity and mortality to both her and .Discussed uterine scar affecting potential of trying TOLAC. Pt counseled thather chances of success are affected by whether or not she has had prior vaginaldelivery and the reason for her CD (TFP vs breech presentation). Her PriorCD was due to FTP.. Her chances of success are 37.5% Based on the [facility] 05/05/2025 Marijuana use (ICD-10 - F12.90) Discussed MJaffecting , possible SGA or IUGR, PTB, neurodevelopmental issues,and possible withdraw at delivery. Recommended quitting 06/01/2025 Second trimester (ICD-10 - Z34.92) 05/05/2025 Adult BMI 40.0-44.9 kg/sq m (ICD-10 - Z68.41) 06/01/2025 Other Weeks 14 to 18 of Your : Care Instructions material was published Plan Of Treatment Next Appt Details Provider Name:France gamino, 06/29/2025 11:00:00 AM, [address] [place] [address] [address], [place], [address], Provider Name:France gamino, 07/12/2025 01:00:00 PM, [address] [place] [address] CH[address] Castillo, [facility] [place], [address], Provider Name:France gamino, 07/27/2025 11:00:00 AM, [address] [place] [address] [address], [place], [address], Provider Name:France gamino, 08/17/2025 11:00:00 AM, [address] [place] [address] [address], [place], [address], Provider Name:France gamino, 09/14/2025 11:00:00 AM, [address] [place] [address] , [address], [place], [address], Insurance Providers Payer Name Payer Address Payer Phone Subscriber Number Group Number Insured Name Patient Relationship to Insured Coverage Start Date Coverage End Date [employer] [address] [place] [phone] [id number] CHRISTIANO MONCADA Self - patient is the insured Medical (General) History Medical History History ICD Code anxiety depression PTSD GERD Surgical History Surgery Date(Month/Year) ovarian cystectomy wisdom teeth 11/07/2021
[2025-06-19 15:54] VITALS: BP 104/61; PULSE 71; RESP 16; TEMP 36.7; O2SAT 99; BMI 41.6
--- NOTE | 2025-06-19 16:17 | W.ED.SYNCOPE ---
HPI - Syncope General: Chief Complaint: Syncope Stated Complaint: Loss of consciousness (18 wks preg) Time Seen by Provider: 06/19/25 15:57 Source: patient Mode of arrival: ambulatory Limitations: no limitations History of Present Illness: 24-year-old female is currently 18 weeks states she had been at work she had been smoking marijuana states she is in a room that was very hot states she felt diaphoretic lightheaded when sat down and had a syncopal event. Course that she had a slight tremor she states she woke up immediately had no postictal state but states she had felt foggy for a little while they checked her blood pressure and she was hypotensive states she feels much improved currently she denies any abdominal pain denies any vomiting. Associated symptoms: Deny abdominal pain, chest pain, fever(s), headache(s) or nausea Related Data Previous Rx's ?Medication ?Instructions ?Recorded albuterol sulfate 90 mcg/actuation 2 puff inhalation Q6H PRN 07/07/24 aerosol inhaler (Ventolin HFA) shortness of breath or wheezing #8.5 grams prednisone 20 mg tablet 20 mg PO BID 5 days #10 tabs 07/07/24 cyclobenzaprine 10 mg tablet 10 mg PO Q8H PRN muscle spasm #20 08/12/24 tabs diclofenac sodium 50 mg 50 mg PO BID PRN pain #14 tabs 08/12/24 tablet,delayed release hydrocodone 5 mg-acetaminophen 325 1 tab PO Q8H PRN pain #14 tabs 08/12/24 mg tablet ondansetron 4 mg disintegrating 4 mg PO Q6H PRN nausea and 11/01/24 tablet vomiting #14 tabs Allergies Allergy/AdvReac Type Severity Reaction Status Date / Time bee venom protein (honey bee) Allergy ALGY-Swell Verified 11/01/24 15:55 Lip/Tongue/Throat codeine Allergy ALGY-Swell Verified 11/01/24 15:55 Lip/Tongue/Throat Review of Systems Const: Denies: fever(s), chills, body aches or change in appetite Eyes: Denies: eye discomfort ENMT: Denies: throat pain or dental pain Card: Reports: syncope; Denies: chest pain Resp: Denies: dyspnea GI: Denies: abdominal pain, nausea, vomiting or diarrhea Musc: Denies: neck pain or back pain Skin/Breast: Denies: rash Neuro: Denies: headache(s) PFSH ED PFSH: Medical History Anxiety and depression Scoliosis History of anorexia nervosa Lordosis History of hallucinations as a child, does not have them much anymore PTSD (post-traumatic stress disorder) Asthma Surgical History Status post section No pertinent past surgical history Family History Grandfather Thyroid disease Maternal CAD (coronary artery disease) Maternal Cancer Maternal--skin cancer Clotting disorder Maternal Hyperlipidemia Maternal Stroke Maternal Mother Seizures Hypertension Diabetes Cancer skin cancer Clotting disorder Grandfather Hypertension Diabetes Maternal Grandmother Hypertension Maternal Family/Other Stroke Maternal aunts Denies family history of Chronic kidney disease (CKD) Bleeding disorder Social History Smoking and tobacco/nicotine status: current every day tobacco/nicotine user cigarettes Alcohol intake: never Substance/Drug Use: current Other substance/drug use details: smokes 6-7 times daily Physical Exam Const: COMMON NORMALS: no acute distress, patient oriented x3 and healthy appearing HENMT: COMMON NORMALS: normocephalic and atraumatic HEAD & SCALP: normocephalic and atraumatic Eye: COMMON NORMALS: Equal, round and reactive pupils present and EOMs intact bilaterally PUPIL: Yes Equal, round and reactive pupils present Neck/C-Spine: COMMON NORMALS: full ROM and supple Chest: COMMONS NORMALS: normal inspection of the chest and normal palpation of entire chest wall Resp: COMMON NORMALS: normal respiratory effort, No retractions, No use of accessory muscles and clear to auscultation bilaterally AUSCULTATION: clear to auscultation bilaterally Cardio: COMMON NORMALS: regular rate, regular rhythm and No murmurs present (Cardio) RATE: regular rate RHYTHM: regular rhythm GI: COMMON NORMALS: Normal to inspection, nondistended, normoactive bowel sounds present, Soft to palpation, non-tender and no masses PALPATION: Yes Soft to palpation Extremity: COMMON NORMALS: normal to inspection and full ROM Neuro: COMMON NORMALS: patient oriented x3, moves all extremities and no focal motor deficits Psych: COMMON NORMALS: mental status grossly normal, Normal thought process present and cooperative THOUGHT PROCESS: Normal thought process present Skin: COMMON NORMALS: no rashes or lesions noted and no wounds GENERAL SKIN EXAM: no rashes or lesions noted Course Vital Signs: Vital signs: Vital Signs Temperature 98.0 F 06/19/25 15:54 Pulse Rate 71 06/19/25 15:54 Respiratory Rate 16 06/19/25 15:54 Blood Pressure 104/61 06/19/25 15:54 Pulse Oximetry 99 06/19/25 15:54 MDM - Syncope Medical Decision Making Patient presents here with a likely syncopal event she is well-appearing here EKG blood works normal her vitals here been normal she stable for discharge she is follow-up with PCP return if worsening. Medical Records I reviewed the patient's medical records. Lab Data I reviewed the patient's lab results. 06/19/25 16:41 Laboratory Results WBC 8.07 10^3/uL (3.29-11.43) 06/19/25 16:41 RBC 4.08 10^6/uL (3.85-5.65) 06/19/25 16:41 Hgb 11.30 g/dL (11.27-16.99) 06/19/25 16:41 Hct 33.4 % (36-47) L 06/19/25 16:41 MCV 81.9 fl (85-98) L 06/19/25 16:41 MCH 27.7 pg (27-33) 06/19/25 16:41 MCHC 33.8 g/dL (30-55) 06/19/25 16:41 RDW 13.9 % (12.1-15.1) 06/19/25 16:41 Plt Count 248 10^3/cmm (157-399) 06/19/25 16:41 MPV 10.3 fL (7.4-10.4) 06/19/25 16:41 Neut % (Auto) 76.1 % 06/19/25 16:41 Lymph % (Auto) 17.3 % 06/19/25 16:41 Lander % (Auto) 4.8 % 06/19/25 16:41 Eos % (Auto) 1.5 % 06/19/25 16:41 Baso % (Auto) 0.1 % 06/19/25 16:41 Neut # (Auto) 6.13 10^3/uL (1.8-7.7) 06/19/25 16:41 Lymph # (Auto) 1.4 10^3/uL (0.8-4.8) 06/19/25 16:41 Lander # (Auto) 0.4 10^3/uL (0.2-0.9) 06/19/25 16:41 Eos # (Auto) 0.1 10^3/uL (0.0-0.8) 06/19/25 16:41 Baso # (Auto) 0.0 10^3/uL (0.0-0.1) 06/19/25 16:41 Nucleated RBC % (auto) 0 % 06/19/25 16:41 Nucleated RBCs # 0.0 /100WBC 06/19/25 16:41 POC Glucose 109 mg/dL (70-110) 06/19/25 16:01 No radiology studies performed this visit EKG Data EKG 1: I personally reviewed and interpreted this EKG as follows: EKG interpretation date: 06/19/25 EKG interpretation time: 17:00 Interpretation: nsr hr [address] elevation qrs 85 qtc 413 Discharge Plan Discharge Patient Disposition: Home Clinical Impression: Syncope Condition: Stable Prescriptions: No Action prednisone 20 mg tablet 20 mg PO BID 5 Days Qty: 10 0RF albuterol sulfate [Ventolin HFA] 90 mcg/actuation HFA aerosol inhaler 2 puff inhalation Q6H PRN (Reason: shortness of breath or wheezing) Qty: 8.5 0RF cyclobenzaprine 10 mg tablet 10 mg PO Q8H PRN (Reason: muscle spasm) Qty: 20 0RF hydrocodone-acetaminophen 5-325 mg tablet 1 tab PO Q8H PRN (Reason: pain) Qty: 14 0RF Rx Instructions: Take 1/2 to 1 tab every 8 hours as needed for pain diclofenac sodium 50 mg tablet,delayed release (DR/EC) 50 mg PO BID PRN (Reason: pain) Qty: 14 0RF ondansetron 4 mg tablet,disintegrating 4 mg PO Q6H PRN (Reason: nausea and vomiting) Qty: 14 0RF Discharge Orders: Discharge ED (Routine); Ordered 06/19/25 Ordered By: Chadwick Arora Referrals: France Blanton MD [Primary Care Provider, CHA[employer] AND [employer]IE[employer] EXECUTIVE OFFICER] - 4-7 days Discharge Diet: Advance as tolerated Discharge Activity: Resume usual activity Patient Instructions: Syncope (ED) Print Language: American Coding Level of Care Code ED Drapery Hanger for Tejas Marquez
--- NOTE | 2025-06-19 17:00 | ECG_ITS ---
[facility] Test Date: 2025-06-19 Pat Name: Marielena Albarado Department: Room: Gender: Female Personnel Officer: : 2000 Requested By: Chadwick Arora Order Number: [id number] Briggs MD: Jez Deras M.D. Measurements Intervals Bath Rate: 71 P: 50 LA: 137 QRS: 57 QRSD: 85 T: 32 QT: 391 QTc: 425 Interpretive Statements SINUS RHYTHM Compared to ECG 05/10/2023 07:29:35 Sinus arrhythmia no longer present Electronically Signed On 06-19-2025 21:37:09 CDT by Jez Deras M.D. [email or web address]
[2025-06-19 17:02] LABS: Hematocrit 33.4 % (36-47); Hemoglobin 11.30 g/dL (11.27-16.99); Mean Corpuscular HGB Conc 33.8 g/dL (30-55); Mean Corpuscular Hemoglobin 27.7 pg (27-33); Mean Corpuscular Volume 81.9 fl (85-98); Nucleated Red Blood Cells % 0 %; Platelet Count 248 10^3/cmm (157-399); Red Blood Count 4.08 10^6/uL (3.85-5.65); White Blood Count 8.07 10^3/uL (3.29-11.43)
[2025-06-19 17:24] VITALS: BP 122/71; PULSE 73; O2SAT 95
== END 2025-06-19 17:40 | disposition home or self-care (01) ==
PROVIDERS: Emergency Provider Emergency Medicine; PCP Obstetrics & Gynecology
DX: O26.892 Other specified pregnancy related conditions, second trimester (principal); Z3A.18 18 weeks gestation of pregnancy; F17.210 Nicotine dependence, cigarettes, uncomplicated
CPT/HCPCS: 36416; 82962; 85025; 93005; 99284